=== PATIENT | female | born 1940 | race African-American/Black ===

== ENCOUNTER 2017-04-30 15:10 | Observation (INO) ==
[2017-04-30] MEDS ORDERED: NITROGLYCERIN 2% OINT 1 INCH/GM PACK TOP STA (16:03)
[2017-04-30] MEDS ORDERED: ASPIRIN 325 MG TABLET PO STA (16:03)
[2017-04-30 16:11] LABS: Basophils % 0.6 % (0.0-0.8); Eosinophils # 0.1 10*3/uL (0.0-0.87); Hematocrit 41.3 VOL% (35.7-47.0); Immature Granulocytes % 0.3 %; Immature Granulocytes Absolute 0.02 #; Lymphocytes # 1.1 10*3/uL (1.4-4.0); Lymphocytes % 15.1 % (21.3-54.2); Mean Corpuscular HGB Conc 33.9 GM/DL (32-36); Mean Corpuscular Hemoglobin 31 PG (27-34); Mean Corpuscular Volume 91.6 FL (87-102); Mean Platelet Volume 11.9 FL (9.6-12.0); Monocytes # 0.6 10*3/uL (0.11-0.8); Monocytes % 8.6 % (1.7-12.7); Neutrophils # 5.2 10*3/uL (1.4-7.4); Neutrophils % 74.4 % (38.7-73.9); Platelet Count 182 T/CUMM (130-400); Red Blood Count 4.51 MC/CUMM (3.8-5.5); Red Cell Distribution Width 12.6 % (9.3-17.3)
--- NOTE | 2017-04-30 16:14 | Emergency Department Note ---
Tino Rubin Brittany, am scribing for, and in the presence of, Crescencio Villeda MD 16:07. Ronal Rubin Thomas, MD, personally performed the services described in this documentation, ascribed by Deirdre Jiménez in my presence, and it is both accurate and complete 614 . Arrival - Arrival Chief Complaint: Chest Pain Stated Complaint: chest pain /sob ED Nursing Triage Note: pt to er 19 via ems coming from home with c/o having chest pain with sob. 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 denies any n/v. states pain between shoulder blades. no other radiating pain noted. Mode of Arrival: Stretcher Limitations: No Limitations Source: Patient, Family, RN Notes Reviewed Time Seen by Provider: 04/30/17 15:26 - History of Present Illness HPI Narrative: Patient is a 77 y/o black female presenting to the ED via EMS with c/o chest pain that onset 3 days ago. Patient rates pain a 5/10 on a numeric pain scale and reports that this pain radiates in between the shoulder blades, denies radiation of pain into the neck or jaw. Family reports that patient has had chest pains in the past secondary to NM, but patient reports that this pain is different. She has had some non-productive cough, clear nasal drainage, but denies having any associated diaphoresis, nausea, vomiting, diarrhea, urgency, frequency, or dysuria. Family at the bedside reports that patient did have some RLE swelling yesterday but attributes this to her having this extremity in more of a dependent position for most of the day. Son states that upon his arrival back to the residency he found patient in the bathroom standing, he called her name with which she didn't respond so he then went to the bathroom and tapped her on her shoulder when she jumped in excitement. He states that this is not like her. Daughter reports that patient does have a history of Dementia/ Alzheimer's and that this could've also been a result of patient getting startled by son. PMHx of HTN, NM, PVD, Dementia, IDDM, NIDDM, Dyslipidemia, Rheumatoid Arthritis, GERD, Anemia, Breast CA of the Right Breast. Onset (ago): day(s) (3) Consistency: constant Allergies/Adverse Reactions: Allergies Allergy/AdvReac Type Severity Reaction Status Date / Time Penicillins Allergy Intermediate RASH Verified 04/30/17 15:16 Home Medications: Home Medications Medication Instructions Recorded Confirmed Type Aspirin [Ecotrin] 81 mg PO DAILY 03/01/15 02/24/17 History Donepezil [Aricept] 5 mg PO BEDTIME 03/01/15 02/24/17 History Isosorbide Mononitrate [Imdur] 30 mg PO DAILY 03/01/15 02/24/17 History Magnesium Chloride [Mag Delay] 64 mg PO BID 03/01/15 02/24/17 History Memantine [Namenda] 10 mg PO BID 03/01/15 02/24/17 History Metoprolol Succinate 50 mg PO DAILY 03/01/15 02/24/17 History Pantoprazole Tab [Protonix Tab] 40 mg PO DAILY 03/01/15 02/24/17 History Sertraline [Zoloft] 100 mg PO DAILY 03/01/15 02/24/17 History amLODIPine [Norvasc] 5 mg PO DAILY 03/01/15 02/24/17 History Pravastatin [Pravachol] 40 mg PO BEDTIME 10/15/15 02/24/17 History Acetaminophen Tab [Tylenol Tab] 325 mg PO Q4H PRN #0 tablet 01/13/16 02/24/17 Rx Docusate Sodium Cap [Colace Cap] 100 mg PO BID capsule 01/13/16 02/24/17 Rx Atorvastatin [Lipitor] 10 mg PO BEDTIME 02/11/16 02/24/17 History Insulin Detemir [Levemir] 40 unit SUBCUT BEDTIME 02/11/16 02/24/17 History Insulin NPH Hum/Reg Insulin Hm 42 unit SUBCUT AC BREAKFAST 02/11/16 02/11/16 History [NovoLIN 70/30] Glimepiride [Amaryl] 2 mg PO DAILY W/BREAKFAST 02/24/17 02/24/17 History Lisinopril 20 mg PO DAILY 02/24/17 02/24/17 History metFORMIN [Glucophage] 500 mg PO BID W/MEALS 02/24/17 02/24/17 History Review of System - Review of System 12 point system: reviewed and no additional remarkable complaints except as stated - Review of System Constitutional: Absent: diaphoresis Head/Ears/Nose/Throat: Present: nasal drainage Respiratory: Present: cough (non-productive), respiratory distress Cardiovascular: Present: chest pain Gastrointestinal: Absent: nausea, vomiting, diarrhea Genitourinary female: Absent: dysuria, frequency, urgency Musculoskeletal: Present: back pain (between the shoulder blades). Absent: neck pain Skin: Absent: rash Medical,Surgical,& Family Hx - Medical History Cardio: History of: Hypertension, NM, PVD (history of stent in the right leg) Psychological: Comment Only: Depression (DEMENTIA) Neurology: History of: Dementia No history of: Seizures HEENT: History of: Ear Problem, Eye Problem (CATARACTS), Dental Problems (FULL) Endocrine: History of: Diabetes Mellitus (IDDM), Diabetes Mellitus (NIDDM), Dyslipidemia Rheumatology: History of;: Rheumatoid Arthritis Gastrointestinal: History of: GERD Musculoskeletal: History of: Back/Neck Problems (C/O neck pain some times) Hematology: History of: Anemia Reproductive: History of: Breast Cancer (right breast about 45yr ago) Other: History of: Cancer (R BREAST) - Surgical History Cardiac Surgeries: Sugical HX of: Femoral-Popliteal Bypass Graft Thoracic Surgeries: Patient denies;: Organ Transplant HEENT Surgeries: Surgical HX of: Eye Surgery (CATARACT) Abdominal Surgeries: Surgical HX of: Abdominal Surgery, Colonoscopy, EGD Reproductive Surgeries: Surgical HX of;: Breast Surgery (RIGHT BREAST CA NO IV AND BP RIGHT ARM), Dilation and Curettage, Hysterectomy Orthopedic Surgeries: Surgical HX of;: Orthopedic Surgery (hip fracture and repair) - Family History Family History: Reports;: Family Cancer (DAD), Family Diabetes (PARENTS), Family Hypertension (SON) Comment Only: Family Heart Disease (SISTER) - Social History Smoking Status: Never smoker Frequency of Alcohol Use: None Type of Drug Use: None Exam Vital Signs: Vital Signs Temperature 97.8 F 04/30/17 15:11 Pulse Rate 82 04/30/17 15:11 Respiratory Rate 18 04/30/17 15:58 Blood Pressure 155/59 04/30/17 15:11 O2 Sat by Pulse Oximetry 100 04/30/17 16:09 - General General appearance: alert, in no apparent distress - Head Head exam: Present: atraumatic, normocephalic - Eye Eye exam: Present: EOMI. Absent: conjunctival injection, periorbital swelling, periorbital tenderness - ENT ENT exam: Present: mucous membranes moist - Neck Neck exam: Present: trachea midline - Chest Chest inspection: Present: symmetric chest wall rise - Respiratory Respiratory exam: Present: normal lung sounds bilaterally. Absent: respiratory distress - Cardiovascular Cardiovascular exam: Present: regular rate, normal rhythm, normal heart sounds - Abdominal Exam Abdominal exam: Present: soft. Absent: distention, tenderness - Extremities Exam Extremities exam: Present: normal capillary refill. Absent: pedal edema, calf tenderness - Neurological Exam Neurological exam: Present: alert. Absent: oriented X3 (disoriented to time), motor sensory deficit - Psychiatric Psychiatric exam: Present: normal affect, normal mood - Skin Skin exam: Present: warm, dry, normal color. Absent: rash Course - Reevaluation(s) Reevaluation #1: much improved with Tx Time: 17:35 - Consultations Consultation #1: jeni Jefferson OBS Time: 17:29 Results - Labs CBC & BMP: 04/30/17 15:48 04/30/17 15:48 Lab Results: I have reviewed the patients labs Labs: Laboratory Tests 04/30/17 04/30/17 04/30/17 15:48 15:48 15:48 WBC 7.0 RBC 4.51 Hgb 14.0 Hct 41.3 Plt Count 182 Neut % (Auto) 74.4 H Lymph % (Auto) 15.1 L Lymph # (Auto) 1.1 L D-Dimer, Quantitative 2.1 Troponin I 0.029 Laboratory Tests 04/30/17 04/30/17 15:48 15:48 Sodium 141 Potassium 4.0 Chloride 104 Carbon Dioxide 33 H BUN 17 Creatinine 1.20 H Glucose 198 H Magnesium 1.7 L Alkaline Phosphatase 127 H B-Natriuretic Peptide 72 Globulin 4.4 H Albumin/Globulin Ratio 0.7 L Laboratory Tests 04/30/17 15:48 B-Natriuretic Peptide 72 - EKG EKG results: interpreted by ERMD, sinus rhythm, normal axis, normal QRS EKG shows: sinus rhythm - Impressions Sinus rhythm. ST-T flattening inferiorly, new from 02/2017. Normal axis. Normal intervals. Normal QRS. - Diagnostic Findings Procedure: Chest x-ray: report reviewed by me (Stable mild cardiomegaly. No acute cardiopulmonary process.) Disposition Clinical Impression: Chest pain, Acute dyspnea Case discussed with: patient, patient's family Disposition: Still a Patient Condition: Stable Time of Disposition: 17:30
[2017-04-30] MEDS ORDERED: NITROGLYCERIN 2% OINT 1 INCH/GM PACK TOP ONE (16:18)
[2017-04-30] MEDS ORDERED: ASPIRIN 325 MG TABLET ONE (16:18)
[2017-04-30 16:48] LABS: Alanine Aminotransferase 26 U/L (13-56); Albumin 3.5 G/DL (3.4-5.0); Alkaline Phosphatase 127 U/L (45-117); Aspartate Amino Transferase 14 U/L (0-37); Bilirubin,Total < 0.39 MG/DL (0.2-1.0); Blood Urea Nitrogen 17 MG/DL (7-18); Calcium 9.8 MG/DL (8.5-10.1); Glucose 198 MG/DL (74-106); Magnesium 1.7 MG/DL (1.8-2.4); Osmolality,Calculated 288.3 MOS/KG (273-304); Sodium 141 MMOL/L (136-145); Total Protein 7.9 G/DL (6.4-8.3)
--- NOTE | 2017-04-30 17:02 | EKG Report ---
Stationary ECG Study [facility] ER Test Date: 04/30/2017 3:51:37 PM Pat Name: DALI MOMIN Department: Room: Gender: F Security Tester: : 1940 Requested by: Crescencio Villeda Order Number: [id number] Reading MD: TYRA ALDRICH Intervals [place] Rate: 72 P: 66 AK: 149 QRS: 21 QRSD: 88 T: 105 QT: 374 QTc: 399 Interpretive Statements SINUS RHYTHM NONSPECIFIC T-WAVE ABNORMALITY ST elevation in V1 and v2 suggest early repolarization and/or LVH. WARNING: DATA QUALITY MAY AFFECT INTERPRETATION Electronically Signed On 04-30-17 19:45:57 CDT by TYRA ALDRICH [email or web address]
--- NOTE | 2017-04-30 17:03 | XRay Report ---
History: Chest pain Date: 04/30/2017 Study: Chest x-ray AP portable Comparison exam: February 25, 2017 There is stable cardiomegaly. The mediastinal contours are unchanged. There is mild to moderate aortic arch calcification. The pulmonary vasculature is not engorged. There is no pleural effusion. There is moderate thoracic spondylosis. Impression: Stable mild cardiomegaly. No acute cardiopulmonary process PROCEDURE INTERPRETED AT [facility] DEPARTMENT OF RADIOLOGY Final Report Signed by: Dr. Kayleigh Naik
[2017-04-30] MEDS ORDERED: DEXTROSE 50% 25 GM/50 ML SYRINGE IV PRN (17:50)
[2017-04-30] MEDS ORDERED: GLUCAGON 1 MG VIAL IM PRN (17:50)
[2017-04-30] MEDS ORDERED: ONDANSETRON 4 MG/2 ML VIAL IV PRN (17:50)
[2017-04-30] MEDS ORDERED: ACETAMINOPHEN 325 MG TABLET PO PRN (17:50)
[2017-04-30] MEDS: ENOXAPARIN 80 MG/0.8 ML SYRINGE SUBCUT SCH (18:56)
[2017-04-30] MEDS: DOCUSATE SODIUM 100 MG CAPSULE PO SCH (20:59)
[2017-05-01 05:24] LABS: Risk Ratio 2.6; VLDL CHOLESTEROL 22.6 MG/DL
[2017-05-01] MEDS: ENOXAPARIN 80 MG/0.8 ML SYRINGE SUBCUT SCH ×2 (06:00→17:41)
--- NOTE | 2017-05-01 08:27 | EKG Report ---
Stationary ECG Study [facility] Test Date: 05/01/2017 7:38:38 AM Pat Name: DALI MOMIN Department: Room: 273 Gender: F Technical Support Agent: : 1940 Requested by: Crescencio Villeda Order Number: [id number] Reading MD: DANA ZAMORANO Intervals [place] Rate: 68 P: 67 ME: 139 QRS: 22 QRSD: 91 T: 53 QT: 404 QTc: 422 Interpretive Statements SINUS RHYTHM NONSPECIFIC T-WAVE ABNORMALITY Electronically Signed On 05-01-17 15:35:23 CDT by DANA ZAMORANO [email or web address]
[2017-05-01] MEDS: PANTOPRAZOLE 40 MG TABLET PO SCH (09:03)
[2017-05-01] MEDS: DOCUSATE SODIUM 100 MG CAPSULE PO SCH ×2 (09:03→21:12)
--- NOTE | 2017-05-01 09:19 | Internal Med History&Physical ---
Assessment and Plan (1) Chest pain Status: Acute Assessment and plan: 77-year-old female admitted to acute care * Chest pain. Patient has history of coronary artery disease. Will consult cardiology to evaluate. Her troponin was in nathan zone. EKG has nonspecific changes. She has multiple risk factors. Will do another set of enzymes this morning. She has been started on aspirin and Lovenox * Insulin-dependent type 2 diabetes. Continue insulin. Will hold metformin. * Hypertension. Blood pressure is stable * Dementia. Continue current treatment * Chronic diabetic foot ulcer. Consult Dr. ng to follow * Discussed with patient and her son Current Visit: Yes (2) DM2 (diabetes mellitus, type 2) Problem details: Fair control. If the patient can be discharged to a rehabilitation facility, I recommend substituting basal and meal time insulin Rx rather than restarting her preadmission 70/30 insulin. Separate basal and prandial insulin dosing affords more specific titration. Status: Acute Current Visit: No (3) Dementia Status: Acute Current Visit: No (4) Diabetic ulcer of right foot Status: Acute Current Visit: No (5) Hypertension Status: Acute Current Visit: No History of Present Illness Chief complaint: Chest pain History of present illness: Ms. Lauren is a 77 year old female with history of multiple medical problems including insulin-dependent diabetes, hypertension, coronary artery disease status post stent placement at [facility] in the past, peripheral vascular disease, status post stent placement in her leg in the past, depression, hyperlipidemia, dementia and chronic diabetic ulcer of the right foot. She was at her home sitting when she started having chest pain associated with shortness of breath. The pain has been going on and on for the past day or so. She also had pain between her shoulder blades. She denies any nausea or vomiting. Patient is mainly limited to a wheelchair because of the chronic wound on the right lower extremity. She denies any history of smoking or alcohol use recently. She lives at home with her daughter Home Medications Medication Instructions Recorded Confirmed Type Aspirin [Ecotrin] 81 mg PO DAILY 03/01/15 04/30/17 History Donepezil [Aricept] 5 mg PO BEDTIME 03/01/15 04/30/17 History Isosorbide Mononitrate [Imdur] 30 mg PO DAILY 03/01/15 04/30/17 History Magnesium Chloride [Mag Delay] 64 mg PO BID 03/01/15 04/30/17 History Memantine [Namenda] 10 mg PO BID 03/01/15 04/30/17 History Metoprolol Succinate 50 mg PO DAILY 03/01/15 04/30/17 History Pantoprazole Tab [Protonix Tab] 40 mg PO DAILY 03/01/15 04/30/17 History Sertraline [Zoloft] 100 mg PO DAILY 03/01/15 04/30/17 History amLODIPine [Norvasc] 5 mg PO BEDTIME 03/01/15 04/30/17 History Pravastatin [Pravachol] 40 mg PO BEDTIME 10/15/15 04/30/17 History Acetaminophen Tab [Tylenol Tab] 325 mg PO Q4H PRN #0 tablet 01/13/16 04/30/17 Rx metFORMIN [Glucophage] 500 mg PO BID W/MEALS 02/24/17 04/30/17 History Calcium Citrate/Vitamin D3 2 each PO DAILY 04/30/17 04/30/17 History [Calcium Citrate - Vit D3 Tab] Insulin NPH Hum/Reg Insulin Hm 20 unit SUBCUT TID 04/30/17 04/30/17 History [NovoLIN 70/30] Losartan Potassium 50 mg PO DAILY 04/30/17 04/30/17 History [place]-3 Fatty Acids [Fish Oil] 300 mg PO DAILY 04/30/17 04/30/17 History Allergies Allergy/AdvReac Type Severity Reaction Status Date / Time Penicillins Allergy Intermediate RASH Verified 04/30/17 15:16 Medical,Surgical,& Family Hx - Medical History Cardio: History of: CAD (Stent placement at [facility]), Hypertension, NM, PVD (history of stent in the right leg), Cardiovascular Problems Psychological: Comment Only: Depression (DEMENTIA) Neurology: History of: Dementia No history of: Seizures HEENT: History of: Ear Problem, Eye Problem (CATARACTS), Dental Problems (FULL) Endocrine: History of: Diabetes Mellitus (IDDM), Dyslipidemia Respiratory: No history of: Respiratory Problems Gastrointestinal: History of: GERD Musculoskeletal: History of: Back/Neck Problems (C/O neck pain some times) No history of: Amputation Hematology: History of: Anemia Reproductive: History of: Breast Cancer (right breast about 45yr ago) Other: History of: Cancer (R BREAST) - Surgical History Cardiac Surgeries: Sugical HX of: Femoral-Popliteal Bypass Graft, Cardiac Catheterization Patient Denies: Cardiac Surgery Thoracic Surgeries: Patient denies;: Organ Transplant, Lobectomy Neurologic Surgeries: Patient denies: Neurologic Surgery HEENT Surgeries: Surgical HX of: Eye Surgery (CATARACT) Abdominal Surgeries: Surgical HX of: Abdominal Surgery, Colonoscopy, EGD Reproductive Surgeries: Surgical HX of;: Breast Surgery (RIGHT BREAST CA NO IV AND BP RIGHT ARM), Dilation and Curettage, Gynecologic Surgery, Hysterectomy Patient denies;: Genitourinary Surgery Orthopedic Surgeries: Surgical HX of;: Orthopedic Surgery (hip fracture and repair) - Family History Family History: Reports;: Family Cancer (DAD), Family Diabetes (PARENTS), Family Hypertension (SON) Comment Only: Family Heart Disease (SISTER) - Social History Smoking Status: Never smoker Frequency of Alcohol Use: None Type of Drug Use: None Marital Status: Single Lives With:: Children (Daughter) Functional capacity: wheelchair bound 12 point system: reviewed and no additional remarkable complaints except as stated (As mentioned in HPI) Exam - Constitutional Vitals: Period Temp Pulse Resp BP Sys/[place] Pulse Ox Last 24 Hr 96.7 F-98.2 F 71-86 16-20 138-167/56-79 94-100 Exam: Examination: GENERAL: NAD. 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 Mucous membranes are moist NECK: Neck is supple. No JVD. No carotid bruit. No thyromegaly. CVS: Regular rate and rhythm. S1 and S2 are normal. RESPIRATORY: Lungs are clear. No rales or rhonchi. ABDOMEN: Soft and nontender. Bowel sounds are present. No hepatosplenomegaly. EXT: No edema. Peripheral pulses are present. SCHOOL OFFICE MANAGER: Patient is awake, alert and oriented to time place and person. Cranial nerves II through XII are grossly intact. Motor strength is 3 to 4/5 SKIN: Warm and dry. Status post right mastectomy. Wound dressing on the right lower extremity MSK: No obvious deformity. Results - Labs CBC & BMP: 04/30/17 15:48 04/30/17 15:48 Lab Results: I have reviewed the past 24 hour labs Quality Measures - Stroke Symptom Onset Unknown: No
[2017-05-01] MEDS ORDERED: ACETAMINOPHEN 325 MG TABLET PO PRN (09:24)
[2017-05-01 10:17] LABS: Troponin I Only 0.028 NG/ML (0.00-0.045)
--- NOTE | 2017-05-01 13:50 | Ultrasound Report ---
Venous Doppler ultrasound bilateral lower extremities Indication: Dyspnea Comparison: None available Findings: No evidence of echogenic, noncompressible thrombus seen in the visualized veins of the extremities. Color Doppler venous waveform pattern is within normal limits. Impression: No evidence of deep venous thrombosis. Ultrasound images stored and captured. PROCEDURE INTERPRETED AT [facility] DEPARTMENT OF RADIOLOGY Final Report Signed by: Dr. Tj Owens
--- NOTE | 2017-05-01 16:06 | Cardiology Consult Note ---
Adam Rubin Lesley, COLLIN, am scribing for, and in the presence of, Krunal Mendez MD 15:59. Assessment and Plan - Time spent with patient Time spent with patient: Greater than 30 minutes (Record review, assessment, and documentation) (1) Dyspnea Status: Acute Assessment and plan: 77-year-old black female, followed by cardiology at [facility], presenting with chest pain, history of CAD, PAD, chronic right lower extremity ulceration, diabetes, moderate dementia. D-dimer 2.1, negative DVT study, borderline troponin, nonspecific repolarization changes on EKG. she is currently chest pain-free and hemodynamically stable. -Continue aspirin, beta-bri, statin. -Stress test in a.m. N.p.o. after midnight. -If cardiac ischemia ruled out, may consider PE workup. -Obtain records from [facility] Current Visit: Yes (2) Dementia Status: Resolved Assessment and plan: SEE PLAN LISTED BELOW Current Visit: No (3) Diabetic ulcer of right foot Status: Chronic Assessment and plan: SEE PLAN LISTED BELOW Current Visit: No (4) Diabetes Status: Chronic Assessment and plan: SEE PLAN LISTED BELOW Current Visit: No (5) Debility Status: Chronic Assessment and plan: SEE PLAN LISTED BELOW Current Visit: Yes (6) Chest pain Status: Acute Assessment and plan: SEE PLAN LISTED BELOW Current Visit: Yes History of Present Illness - Data of Consult Patient: new to practice Consult date: 05/01/17 - Consult Narrative Reason for consult: Chest pain, shortness of breath History of present illness: CONSTRUCTION ENGINEER: [facility], patient and son unable to tell me Ms. Lauren is a 77 year old BF, past medical history of insulin-dependent diabetes, hypertension, CAD, post PCI at [facility], PAD (with stent placement in the past), dyslipidemia, dementia, dysphasia, breast cancer and chronic diabetic ulcer in the right foot (general debility and wheelchair confinement). The patient has never smoked and does not use alcohol. Past surgical history includes hysterectomy, right mastectomy, and debridement of chronic right diabetic ulcer. The patient and her son were unable to tell me the name of the outside machinist she is seen in the past. Will request records from [facility]. Echocardiogram done 03/2015 revealed grade 1 diastolic dysfunction, EF 65%. Patient reports that she was lying in bed asleep and awakened with chest pain, shortness of breath, and heart palpitations. Patient denies nausea, vomiting, diaphoresis, bright red blood per rectum, and melena. The son is at bedside and reports that he found her sitting on the toilet, she seemed "out of it". 911 was called and the patient was brought to the emergency room by EMS. The patient was admitted to continuous telemetry unit, she denies complaints of further chest pain or shortness of breath. EKG shows sinus rhythm with ST-T- wave abnormality. Chest x-ray resulted stable cardiomegaly, no acute cardiopulmonary process. Labs reviewed, Troponin unremarkable other than slight 0.055 elevation. Creatinine 1.2 , Magnesium 1.7, lipid panel noted. The patient does complain of some midepigastric tenderness, she also complains of dysphasia that has worsened recently. She states that she did have an esophageal stretching in the past, she does not know which GI specialist she has seen. Will add Dopplers of lower extremity and consider CT of the chest to rule out pulmonary embolus. Will discuss with Dr. Mendez, further recommendations to follow. I CC: David Velasquez MD - Home Medications and Allergies Home Medications: Home Medications Medication Instructions Recorded Confirmed Type Aspirin [Ecotrin] 81 mg PO DAILY 03/01/15 04/30/17 History Donepezil [Aricept] 5 mg PO BEDTIME 03/01/15 04/30/17 History Isosorbide Mononitrate [Imdur] 30 mg PO DAILY 03/01/15 04/30/17 History Magnesium Chloride [Mag Delay] 64 mg PO BID 03/01/15 04/30/17 History Memantine [Namenda] 10 mg PO BID 03/01/15 04/30/17 History Metoprolol Succinate 50 mg PO DAILY 03/01/15 04/30/17 History Pantoprazole Tab [Protonix Tab] 40 mg PO DAILY 03/01/15 04/30/17 History Sertraline [Zoloft] 100 mg PO DAILY 03/01/15 04/30/17 History amLODIPine [Norvasc] 5 mg PO BEDTIME 03/01/15 04/30/17 History Pravastatin [Pravachol] 40 mg PO BEDTIME 10/15/15 04/30/17 History Acetaminophen Tab [Tylenol Tab] 325 mg PO Q4H PRN #0 tablet 01/13/16 04/30/17 Rx metFORMIN [Glucophage] 500 mg PO BID W/MEALS 02/24/17 04/30/17 History Calcium Citrate/Vitamin D3 2 each PO DAILY 04/30/17 04/30/17 History [Calcium Citrate - Vit D3 Tab] Insulin NPH Hum/Reg Insulin Hm 20 unit SUBCUT TID 04/30/17 04/30/17 History [NovoLIN 70/30] Losartan Potassium 50 mg PO DAILY 04/30/17 04/30/17 History Griswold-3 Fatty Acids [Fish Oil] 300 mg PO DAILY 04/30/17 04/30/17 History Allergies/Adverse Reactions: Allergies Allergy/AdvReac Type Severity Reaction Status Date / Time Penicillins Allergy Intermediate RASH Verified 04/30/17 15:16 - Constitutional Constitutional: Absent: chills, fatigue, fever(s), headache(s) - EENT Nose, mouth and throat: Present: dysphagia, sore throat - Cardiovascular Cardiovascular: Present: chest pain at rest, dyspnea, palpitations. Absent: chest pain with activity, diaphoresis, dyspnea on exertion, edema, radiating jaw , neck or arm pain, orthopnea - Respiratory Respiratory: Present: dyspnea. Absent: cough, dyspnea on exertion - Gastrointestinal Gastrointestinal: Present: dysphagia, hematemesis. Absent: abdominal pain, change in bowel habits, coffee ground emesis, melena, nausea, vomiting - Genitourinary Genitourinary: Present: urinary incontinence. Absent: difficulty urinating, dysuria - Neurological Neurological: Absent: abnormal speech, behavioral changes, confusion - Psychiatric Psychiatric: Absent: anxiety - Endocrine Endocrine: Absent: cold intolerance, fatigue - Hematologic/Lymphatic Hematologic/Lymphatic: Absent: easy bleeding Medical,Surgical,& Family Hx - Medical History Cardio: History of: CAD (Stent placement at [facility]), Hypertension, RI, PVD (history of stent in the right leg), Cardiovascular Problems Psychological: Comment Only: Depression (DEMENTIA) Neurology: History of: Dementia No history of: Seizures HEENT: History of: Ear Problem, Eye Problem (CATARACTS), Dental Problems (FULL) Endocrine: History of: Diabetes Mellitus (IDDM), Diabetes Mellitus (NIDDM), Dyslipidemia Rheumatology: History of;: Rheumatoid Arthritis Respiratory: No history of: Respiratory Problems Gastrointestinal: History of: GERD Musculoskeletal: History of: Back/Neck Problems (C/O neck pain some times) No history of: Amputation Hematology: History of: Anemia Reproductive: History of: Breast Cancer (right breast about 45yr ago) Other: History of: Cancer (R BREAST) - Surgical History Cardiac Surgeries: Sugical HX of: Femoral-Popliteal Bypass Graft, Cardiac Catheterization Patient Denies: Cardiac Surgery Thoracic Surgeries: Patient denies;: Organ Transplant, Lobectomy Neurologic Surgeries: Patient denies: Neurologic Surgery HEENT Surgeries: Surgical HX of: Eye Surgery (CATARACT) Abdominal Surgeries: Surgical HX of: Abdominal Surgery, Colonoscopy, EGD Reproductive Surgeries: Surgical HX of;: Breast Surgery (RIGHT BREAST CA NO IV AND BP RIGHT ARM), Dilation and Curettage, Gynecologic Surgery, Hysterectomy Patient denies;: Genitourinary Surgery Orthopedic Surgeries: Surgical HX of;: Orthopedic Surgery (hip fracture and repair) - Family History Family History: Reports;: Family Cancer (DAD), Family Diabetes (PARENTS), Family Hypertension (SON) Comment Only: Family Heart Disease (SISTER) - Social History Smoking Status: Never smoker Frequency of Alcohol Use: None Type of Drug Use: None Lives With:: Children Functional capacity: wheelchair bound Physical Examination Vital Signs Temp Pulse Resp BP Pulse Ox 97.8 F 82 18 155/59 97 04/30/17 15:11 04/30/17 15:11 04/30/17 15:11 04/30/17 15:11 04/30/17 15:11 Exam: General: No apparent distress. Pleasant and cooperative. Appears comfortable. HEENT: PERRL, normocephalic, atraumatic. Mucous membranes moist. No jaundice noted. Conjunctiva moist and clear, sclerae anicteric. Neck: No JVD/HJR, no thyromegaly or lymphadenopathy noted. No carotid bruit appreciated. Cardiac: Regular rate and rhythm. No murmur rub or gallop. PMI is nondisplaced. Lungs: Clear to auscultation without accessory muscle use to assist the respiratory pattern. No oxygen in use. Abdomen: Soft, bowel sounds normoactive. Nontender and nondistended. No abdominal bruit or thrill noted. No masses noted. Musculoskeletal: No fluid collection. Decreased range of motion is noted, dressing intact to right heel and foot. Extremities: No clubbing, cyanosis noted. No edema noted. Upper extremity pulses 2+. Lower extremity pulses 2+. Capillary refill less than 3 seconds. Skin: Warm and dry. No unusual lesions or rashes. Dressing intact to her right foot and heel. Neuro: Awake, alert and oriented to self and place. Moves all extremities well without hemiparesis or paralysis. No essential tremor is appreciated. Result/EKG - Labs CBC & BMP: 04/30/17 15:48 04/30/17 15:48 Lab Results: I have reviewed the past 24 hour labs Labs: Laboratory Results - last 24 hr 04/30/17 04/30/17 04/30/17 15:48 15:48 15:48 WBC RBC Hgb Hct MCV MCH MCHC RDW Plt Count MPV Neut % (Auto) Lymph % (Auto) Noble % (Auto) Eos % (Auto) Baso % (Auto) Neut # (Auto) Lymph # (Auto) Noble # (Auto) Eos # (Auto) Baso # (Auto) Immature Gran % Nucleated RBC % Immature Gran # Nucleated RBCs # Immature Plt Fraction D-Dimer, Quantitative 2.1 Sodium 141 Potassium 4.0 Chloride 104 Carbon Dioxide 33 H Anion Gap 8.0 BUN 17 Creatinine 1.20 H GFR Calculation 57 BUN/Creatinine Ratio 14.00 Glucose 198 H Calculated Osmolality 288.3 Calcium 9.8 Magnesium 1.7 L Total Bilirubin < 0.39 AST 14 ALT 26 Alkaline Phosphatase 127 H Total Creatine Kinase CK-MB (CK-2) Troponin I 0.029 B-Natriuretic Peptide Total Protein 7.9 Albumin 3.5 Globulin 4.4 H Albumin/Globulin Ratio 0.7 L Triglycerides Cholesterol LDL Cholesterol VLDL Cholesterol HDL Cholesterol Heart Disease Risk Ratio 04/30/17 04/30/17 04/30/17 15:48 15:48 18:52 WBC 7.0 RBC 4.51 Hgb 14.0 Hct 41.3 MCV 91.6 MCH 31 MCHC 33.9 RDW 12.6 Plt Count 182 MPV 11.9 Neut % (Auto) 74.4 H Lymph % (Auto) 15.1 L Noble % (Auto) 8.6 Eos % (Auto) 1.0 Baso % (Auto) 0.6 Neut # (Auto) 5.2 Lymph # (Auto) 1.1 L Noble # (Auto) 0.6 Eos # (Auto) 0.1 Baso # (Auto) 0.0 Immature Gran % 0.3 Nucleated RBC % 0.0 Immature Gran # 0.02 Nucleated RBCs # 0.00 Immature Plt Fraction 0.0 D-Dimer, Quantitative Sodium Potassium Chloride Carbon Dioxide Anion Gap BUN Creatinine GFR Calculation BUN/Creatinine Ratio Glucose Calculated Osmolality Calcium Magnesium Total Bilirubin AST ALT Alkaline Phosphatase Total Creatine Kinase CK-MB (CK-2) Troponin I 0.055 H D B-Natriuretic Peptide 72 Total Protein Albumin Globulin Albumin/Globulin Ratio Triglycerides Cholesterol LDL Cholesterol VLDL Cholesterol HDL Cholesterol Heart Disease Risk Ratio 05/01/17 05/01/17 04:16 09:14 WBC RBC Hgb Hct MCV MCH MCHC RDW Plt Count MPV Neut % (Auto) Lymph % (Auto) Noble % (Auto) Eos % (Auto) Baso % (Auto) Neut # (Auto) Lymph # (Auto) Noble # (Auto) Eos # (Auto) Baso # (Auto) Immature Gran % Nucleated RBC % Immature Gran # Nucleated RBCs # Immature Plt Fraction D-Dimer, Quantitative Sodium Potassium Chloride Carbon Dioxide Anion Gap BUN Creatinine GFR Calculation BUN/Creatinine Ratio Glucose Calculated Osmolality Calcium Magnesium Total Bilirubin AST ALT Alkaline Phosphatase Total Creatine Kinase 134 CK-MB (CK-2) 3.1 Troponin I 0.028 B-Natriuretic Peptide Total Protein Albumin Globulin Albumin/Globulin Ratio Triglycerides 113 Cholesterol 164 LDL Cholesterol 83.0 VLDL Cholesterol 22.6 HDL Cholesterol 63 H Heart Disease Risk Ratio 2.60 - Diagnostic Findings Procedure: Chest x-ray: report reviewed by me - EKG EKG results: interpreted by me, sinus rhythm Quality Measures - Stroke Symptom Onset Unknown: No I, Krunal Mendez MD, personally performed the services described in this documentation, ascribed by Negin Medina NP in my presence, and it is both accurate and complete 606 .
[2017-05-01] MEDS: INSULIN NPH/REGULAR 70/30 100 UNIT/ML SUBCUT SCH ×2 (17:06→21:12)
[2017-05-01] MEDS: metFORMIN 500 MG TABLET PO SCH (17:07)
[2017-05-01] MEDS: PRAVASTATIN 40 MG TABLET PO SCH (21:11)
[2017-05-01] MEDS: MAGNESIUM CHLORIDE 64 MG TABLET PO SCH (21:11)
[2017-05-01] MEDS: DONEPEZIL 5 MG TABLET PO SCH (21:12)
[2017-05-01] MEDS: MEMANTINE 10 MG TABLET PO SCH (21:12)
[2017-05-01] MEDS: amLODIPine 5 MG TABLET PO SCH (21:12)
[2017-05-01 22:28] LABS: Apearance,Urine Slightly Hazy (Clear); Bacteria,Urine Occasional /HPF (Few); Bilirubin,Urine Negative (Negative); Blood, Urine Small mg/dL (Negative); Glucose,Urine (UA) >=500 mg/dL (Negative); Ketones,Urine Negative (Negative); Mucus,Urine Occasional /LPF (Occasional); Nitrite,Urine Positive (Negative); Protein,Urine 30 MG/DL; RBC,Urine 2 /HPF (0-4); Urine Color Yellow (Yellow); Urine Specific Gravity 1.018 (1.001-1.035); Urine Urobilinogen < 2.0 EU/DL (0.2-1.0); WBC,Urine 117 /HPF (0-6)
[2017-05-02 04:40] LABS: Basophils % 0.6 % (0.0-0.8); Eosinophils # 0.1 10*3/uL (0.0-0.87); Eosinophils % 1.7 % (0.00-10.9); Hematocrit 39.4 VOL% (35.7-47.0); Hemoglobin 13.5 GM/DL (12.0-16.0); Immature Granulocytes % 0.6 %; Immature Granulocytes Absolute 0.04 #; Lymphocytes # 2.1 10*3/uL (1.4-4.0); Lymphocytes % 29.6 % (21.3-54.2); Mean Corpuscular HGB Conc 34.3 GM/DL (32-36); Mean Corpuscular Hemoglobin 31 PG (27-34); Mean Platelet Volume 12.2 FL (9.6-12.0); Monocytes # 0.7 10*3/uL (0.11-0.8); Monocytes % 9.5 % (1.7-12.7); Neutrophils # 4.2 10*3/uL (1.4-7.4); Platelet Count 174 T/CUMM (130-400); Red Blood Count 4.38 MC/CUMM (3.8-5.5); Red Cell Distribution Width 12.7 % (9.3-17.3); White Blood Count 7.2 T/CUMM (4-12)
[2017-05-02 05:08] LABS: Calcium 9.5 MG/DL (8.5-10.1); Potassium 3.7 MMOL/L (3.5-5.1)
[2017-05-02] MEDS: ENOXAPARIN 80 MG/0.8 ML SYRINGE SUBCUT SCH ×3 (06:45→22:29)
[2017-05-02] MEDS ORDERED: REGADENOSON 0.4 MG/5 ML SYRINGE IV ONE (08:29)
[2017-05-02] MEDS ORDERED: METOPROLOL SUCCINATE XL 50 MG TABLET PO SCH ×2 (09:00→21:00)
--- NOTE | 2017-05-02 09:18 | Event Note ---
Patient admitted with chest pain, shortness of breath, palpitations underwent Lexiscan Cardiolite due to right foot ulcer/gait instability. She had no significant EKG changes. She experienced no chest pain, heaviness, tightness, dizziness, lightheadedness, shortness of breath, or syncope. Patient had a nuclear medicine for final scan. Dr. Mendez to read, interpret, and advise.
--- NOTE | 2017-05-02 11:33 | Internal Med Progress Note ---
Assessment and Plan (1) Chest pain Status: Acute Assessment and plan: 77-year-old female admitted to acute care * Chest pain. Patient had nuclear stress test today. Results are pending * Insulin-dependent type 2 diabetes. Continue insulin. * Hypertension. Blood pressure is stable * Dementia. Continue current treatment * Chronic diabetic foot ulcer. Patient is followed by surgery * Discussed with patient Current Visit: Yes (2) DM2 (diabetes mellitus, type 2) Problem details: Fair control. If the patient can be discharged to a rehabilitation facility, I recommend substituting basal and meal time insulin Rx rather than restarting her preadmission 70/30 insulin. Separate basal and prandial insulin dosing affords more specific titration. Status: Resolved Current Visit: No (3) Dementia Status: Resolved Current Visit: No (4) Diabetic ulcer of right foot Status: Chronic Current Visit: No (5) Hypertension Status: Resolved Current Visit: No Internal Medicine - PN: Subj Interval history: She is feeling better this morning. No specific complaints. No chest pain or shortness of breath Exam (Progress Note) - Constitutional Vitals: Period Temp Pulse Resp BP Sys/[place] Pulse Ox Last 24 Hr 97.4 F-98.8 F 68-85 18-20 150-192/63-87 94-100 Exam: Examination: GENERAL: NAD. 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 NECK: Neck is supple. CVS: Regular rate and rhythm. RESPIRATORY: Lungs are clear. ABDOMEN: Soft and nontender. Extremities: Peripheral pulses are present. MEMBER SERVICES COORDINATOR: Patient is awake, alert and oriented to time place and person. Cranial nerves II through XII are grossly intact. Motor strength is 3 to 4/5 SKIN: Warm and dry. Status post right mastectomy. Wound dressing on the right lower extremity MSK: No obvious deformity. Results - Labs CBC & BMP: 05/02/17 04:06 05/02/17 04:06 Lab Results: I have reviewed the past 24 hour labs Quality Measures - Stroke Symptom Onset Unknown: No
[2017-05-02] MEDS: DOCUSATE SODIUM 100 MG CAPSULE PO SCH ×2 (12:17→22:04)
[2017-05-02] MEDS: ISOSORBIDE MONONITRATE 30 MG TABLET PO SCH (12:17)
[2017-05-02] MEDS: OMEGA 3 ACID ETHYL ESTERS 1 GM CAPSULE PO SCH (12:17)
[2017-05-02] MEDS: CALCIUM (CITRATE)/VITAMIN D 200 MG-125 UNIT TABLET PO SCH (12:17)
[2017-05-02] MEDS: MAGNESIUM CHLORIDE 64 MG TABLET PO SCH ×2 (12:19→22:04)
[2017-05-02] MEDS: PANTOPRAZOLE 40 MG TABLET PO SCH ×2 (12:19→12:20)
[2017-05-02] MEDS: MEMANTINE 10 MG TABLET PO SCH ×2 (12:19→22:04)
[2017-05-02] MEDS: ASPIRIN EC 81 MG TABLET PO SCH (12:19)
[2017-05-02] MEDS: metFORMIN 500 MG TABLET PO SCH ×2 (12:20→16:45)
[2017-05-02] MEDS: INSULIN NPH/REGULAR 70/30 100 UNIT/ML SUBCUT SCH ×3 (12:29→22:05)
[2017-05-02] MEDS: SERTRALINE 100 MG TABLET PO SCH (12:30)
[2017-05-02] MEDS: LOSARTAN 50 MG TABLET PO SCH (12:30)
[2017-05-02] MEDS ORDERED: cloNIDine 0.1 MG TABLET PO PRN (12:58)
[2017-05-02 16:35] LABS: Calcium 8.9 MG/DL (8.5-10.1); Magnesium 1.6 MG/DL (1.8-2.4); Osmolality,Calculated 289.3 MOS/KG (273-304); Potassium 3.9 MMOL/L (3.5-5.1)
--- NOTE | 2017-05-02 17:44 | Nuclear Medicine Report ---
PHARMACOLOGICAL STRESS TEST. This is interpreted and dictated by Dr. Krunal Mendez. INDICATION: Chest pain. PROCEDURE: At rest, 10 mCi of 99-Technetium labeled Sestamibi was injected and rest images were obtained. A 0.4 mg IV Lexiscan was then injected. Then, 30 mCi of 99-Technetium labeled Sestamibi was injected and post pharmacological stress images were obtained. FINDINGS: At rest, sinus rhythm, 81 beats per minute, [address] depression in leads II, III, and aVF, blood pressure 146/78 mmHg. Post Lexiscan injection, sinus bradycardia, occasional PACs, heart rate 102 beats per minute. Blood pressure 154/[address] depression remained persistent with no change. There was no chest pain. Rest and post pharmacological stress gated and perfusion images were reviewed. There are motion artifacts on both post stress and rest images. The end-diastolic volume is 70 cc, the end-systolic volume is 25 cc. The calculated left ventricular ejection fraction is 64%. Perfusion images show an area of mildly decreased activity in the anteroseptal/apical region at rest, which becomes moderately photopenic post stress, suggestive of small amount of myocardial ischemia. Given the amount of motion artifacts, this could also imply rest imaging artifacts. CONCLUSION: 1. ABNORMAL REST EKG, NO SIGNIFICANT CHANGES WITH PHARMACOLOGICAL STRESS. NO CHEST PAIN. 2. NORMAL LEFT VENTRICULAR SIZE/NORMAL SYSTOLIC FUNCTION. 3. PERFUSION FINDINGS ARE SUGGESTIVE OF A SMALL AREA OF MILD ISCHEMIA IN THE ANTERIOR APICAL/ANTEROSEPTAL REGION, ALTHOUGH, FINDINGS ARE LIMITED BY MOTION ARTIFACTS. THERE ARE NO CORRESPONDING WALL MOTION ABNORMALITIES. 4. THIS IS A LOW TO MODERATE RISK TEST. Procedure performed and interpreted at [facility] Department of Radiology. [facility]
--- NOTE | 2017-05-02 19:48 | Cardiology Progress Note ---
Adam Rubin Lesley, COLLIN, am scribing for, and in the presence of, Krunal Mendez MD 19:48. Assessment and Plan - Time spent with patient Time spent with patient: Greater than 30 minutes (1) Dyspnea Status: Acute Assessment and plan: SEE PLAN LISTED BELOW Current Visit: Yes (2) Diabetic ulcer of right foot Status: Chronic Assessment and plan: SEE PLAN LISTED BELOW Current Visit: No (3) Diabetes Status: Chronic Assessment and plan: SEE PLAN LISTED BELOW Current Visit: No (4) Debility Status: Chronic Assessment and plan: SEE PLAN LISTED BELOW Current Visit: Yes (5) Chest pain Status: Acute Assessment and plan: SEE PLAN LISTED BELOW Current Visit: Yes (6) UTI (urinary tract infection) Status: Acute Assessment and plan: SEE PLAN LISTED BELOW Current Visit: Yes Cardiology - PN: Subj Interval history: FOOD SAFETY MANAGER: Dr. Jag Corral Ms. Lauren is a 77 year old BF, past medical history of insulin-dependent diabetes, hypertension, CAD, post PCI at [facility], PAD (with stent placement in the past), dyslipidemia, dementia, dysphasia, breast cancer and chronic diabetic ulcer in the right foot (general debility and wheelchair confinement). The patient has never smoked and does not use alcohol. Past surgical history includes hysterectomy, right mastectomy, and debridement of chronic right diabetic ulcer. The patient and her son were unable to tell me the name of the jackhammer splitter operator she is seen in the past. Will request records from [facility]. Echocardiogram done 03/2015 revealed grade 1 diastolic dysfunction, EF 65%. Patient reports that she was lying in bed asleep and awakened with chest pain, shortness of breath, and heart palpitations. Patient denies nausea, vomiting, diaphoresis, bright red blood per rectum, and melena. The son is at bedside and reports that he found her sitting on the toilet, she seemed "out of it". 911 was called and the patient was brought to the emergency room by EMS. The patient was admitted to continuous telemetry unit, she denies complaints of further chest pain or shortness of breath. EKG shows sinus rhythm with ST-T- wave abnormality. Chest x-ray resulted stable cardiomegaly, no acute cardiopulmonary process. Labs reviewed, Troponin unremarkable other than slight 0.055 elevation. Creatinine 1.2 , Magnesium 1.7, lipid panel noted. The patient does complain of some midepigastric tenderness, she also complains of dysphasia that has worsened recently. She states that she did have an esophageal stretching in the past, she does not know which GI specialist she has seen. Will add Dopplers of lower extremity and consider CT of the chest to rule out pulmonary embolus. 2016: Patient underwent stress test this morning, results pending. Hypertension uncontrolled, heart rate in the 70s with sinus rhythm noted on fine arts model. Labs reviewed CBC unremarkable, creatinine 0.8, LDL 83. Urinalysis positive nitrates and leukocytes, preliminary culture positive for gram-negative rods. Plan to start an antibiotic for UTI, if stress test rules out cardiac ischemia, would consider PE workup. Can set up outpatient GI for complaints of esophageal stricture and dysphagia. Records reviewed from [facility], last cardiac echo done in 2009 revealed normal chamber size with hyper dynamic wall motion and systolic function, EF 65-70%. Mild MR, TR. ASSESSMENT/PLAN: 1. Uncontrolled HTN. Clonidine was added, increase metoprolol to 100 mg twice daily. 2. Stress test was a low risk. No ACS. Reviewed prior cath report had patent LAD stent few yrs ago. Continue aspirin 3. Continue Imdur. Decrease Lovenox to DVT prophylactic dose. 4. Severe PAD, chronic SFA occlusion, ulcers. She is quite debilitated from this, will need outpatient follow-up 5. Follow-up with her jackhammer splitter operator at [facility] Exam (Progress Note) - Constitutional Vitals: Period Temp Pulse Resp BP Sys/[place] Pulse Ox Last 24 Hr 97.3 F-98.8 F 68-85 18-20 150-219/63-88 96-100 Exam: General: [Laying in bed, no apparent distress.] [Pleasant and cooperative. ] [ Appears comfortable.] HEENT: [PERRL, normocephalic, atraumatic]. [Mucous membranes moist.] [No jaundice noted.] [Conjunctiva moist and clear, sclerae anicteric.] Neck: [No JVD/HJR, no thyromegaly or lymphadenopathy noted.] [ No carotid bruit appreciated.] Cardiac: [Regular rate and rhythm.] [No murmur rub or gallop.] [PMI is nondisplaced.] Lungs: [Clear to auscultation without accessory muscle use to assist the respiratory pattern.] [ No oxygen in use. Abdomen: [Soft, bowel sounds normoactive.] [Nontender and nondistended.] [No abdominal bruit or thrill noted.] [No masses noted.] Musculoskeletal: [No fluid collection.] Full range of motion is noted to all extremities.] Extremities: [No clubbing, cyanosis noted.] [ No edema noted.] [Upper extremity pulses 2+.] [Lower extremity pulses 2+.] Capillary refill less than 3 seconds. Skin: Warm and dry. No unusual lesions or rashes. No skin breakdown appreciated. Right foot and heel with dressing intact for diabetic ulcer. Neuro: Awake, alert and oriented 3. Moves all extremities well without hemiparesis or paralysis. No essential tremor is appreciated. Result/EKG - Labs CBC & BMP: 05/02/17 04:06 05/02/17 16:02 Lab Results: I have reviewed the past 24 hour labs Labs: Laboratory Results - last 24 hr 05/01/17 05/01/17 05/01/17 16:29 16:32 19:57 WBC RBC Hgb Hct MCV MCH MCHC RDW Plt Count MPV Neut % (Auto) Lymph % (Auto) [place] % (Auto) Eos % (Auto) Baso % (Auto) Neut # (Auto) Lymph # (Auto) [place] # (Auto) Eos # (Auto) Baso # (Auto) Immature Gran % Nucleated RBC % Immature Gran # Nucleated RBCs # Immature Plt Fraction Sodium Potassium Chloride Carbon Dioxide Anion Gap BUN Creatinine GFR Calculation BUN/Creatinine Ratio Glucose POC Glucose 411 H 374 H 332 H Calculated Osmolality Calcium Urine Color Urine Appearance Urine pH Ur Specific [place] Urine Protein Urine Glucose (UA) Urine Ketones Urine Blood Urine Nitrate Urine Bilirubin Urine Urobilinogen Urine Leukocytes Urine RBC Urine WBC Urine WBC Clumps Urine Bacteria Urine Mucus Ur Culture Indicated? 05/01/17 05/02/17 05/02/17 22:05 04:06 04:06 WBC 7.2 RBC 4.38 Hgb 13.5 Hct 39.4 MCV 90.0 MCH 31 MCHC 34.3 RDW 12.7 Plt Count 174 MPV 12.2 H Neut % (Auto) 58.0 Lymph % (Auto) 29.6 [place] % (Auto) 9.5 Eos % (Auto) 1.7 Baso % (Auto) 0.6 Neut # (Auto) 4.2 Lymph # (Auto) 2.1 [place] # (Auto) 0.7 Eos # (Auto) 0.1 Baso # (Auto) 0.0 Immature Gran % 0.6 Nucleated RBC % 0.0 Immature Gran # 0.04 Nucleated RBCs # 0.00 Immature Plt Fraction 0.0 Sodium 143 Potassium 3.7 Chloride 106 Carbon Dioxide 31 Anion Gap 9.7 BUN 16 Creatinine 0.80 GFR Calculation 96 BUN/Creatinine Ratio 20.00 Glucose 73 L POC Glucose Calculated Osmolality 284.0 Calcium 9.5 Urine Color Yellow Urine Appearance Slightly hazy Urine pH 5.0 Ur Specific [place] 1.018 Urine Protein 30 Urine Glucose (UA) >=500 Urine Ketones Negative Urine Blood Small Urine Nitrate Positive H Urine Bilirubin Negative Urine Urobilinogen < 2.0 H Urine Leukocytes Moderate H Urine RBC 2 Urine WBC 117 Urine WBC Clumps Occasional Urine Bacteria Occasional Urine Mucus Occasional Ur Culture Indicated? Results to follow 05/02/17 05/02/17 07:26 11:25 WBC RBC Hgb Hct MCV MCH MCHC RDW Plt Count MPV Neut % (Auto) Lymph % (Auto) [place] % (Auto) Eos % (Auto) Baso % (Auto) Neut # (Auto) Lymph # (Auto) [place] # (Auto) Eos # (Auto) Baso # (Auto) Immature Gran % Nucleated RBC % Immature Gran # Nucleated RBCs # Immature Plt Fraction Sodium Potassium Chloride Carbon Dioxide Anion Gap BUN Creatinine GFR Calculation BUN/Creatinine Ratio Glucose POC Glucose 108 H 207 H Calculated Osmolality Calcium Urine Color Urine Appearance Urine pH Ur Specific [place] Urine Protein Urine Glucose (UA) Urine Ketones Urine Blood Urine Nitrate Urine Bilirubin Urine Urobilinogen Urine Leukocytes Urine RBC Urine WBC Urine WBC Clumps Urine Bacteria Urine Mucus Ur Culture Indicated? - EKG EKG results: interpreted by me, sinus rhythm Quality Measures - Stroke Symptom Onset Unknown: No I, Krunal Mendez MD, personally performed the services described in this documentation, ascribed by Negin Medina NP in my presence, and it is both accurate and complete [id number] .
[2017-05-02] MEDS: NITROFURANTOIN MACRO/MONO 100 MG CAPSULE PO SCH (22:04)
[2017-05-02] MEDS: PRAVASTATIN 40 MG TABLET PO SCH (22:04)
[2017-05-02] MEDS: amLODIPine 5 MG TABLET PO SCH (22:04)
[2017-05-02] MEDS: METOPROLOL SUCCINATE XL 100 MG TABLET PO SCH (22:04)
[2017-05-02] MEDS: DONEPEZIL 5 MG TABLET PO SCH (22:05)
[2017-05-03 04:01] LABS: Basophils % 0.4 % (0.0-0.8); Eosinophils # 0.1 10*3/uL (0.0-0.87); Hematocrit 39.1 VOL% (35.7-47.0); Hemoglobin 13.3 GM/DL (12.0-16.0); Immature Granulocytes % 0.4 %; Immature Granulocytes Absolute 0.03 #; Lymphocytes # 2.1 10*3/uL (1.4-4.0); Lymphocytes % 30.4 % (21.3-54.2); Mean Corpuscular Hemoglobin 31 PG (27-34); Mean Platelet Volume 12.3 FL (9.6-12.0); Monocytes # 0.7 10*3/uL (0.11-0.8); Monocytes % 9.5 % (1.7-12.7); Neutrophils % 57.3 % (38.7-73.9); Platelet Count 184 T/CUMM (130-400); Red Blood Count 4.25 MC/CUMM (3.8-5.5); White Blood Count 6.9 T/CUMM (4-12)
--- NOTE | 2017-05-03 08:12 | EKG Report ---
Stationary ECG Study [facility] Test Date: 05/03/2017 8:11:09 AM Pat Name: DALI MOMIN Department: Room: 273 Gender: F Reed Or Wind Instrument Repairer: QUE : 1940 Requested by: Crescencio Villeda Order Number: [id number] Reading MD: DANA ZAMORANO Intervals [place] Rate: 63 P: 59 SC: 143 QRS: -5 QRSD: 92 T: 90 QT: 425 QTc: 433 Interpretive Statements SINUS RHYTHM NONSPECIFIC T-WAVE ABNORMALITY Electronically Signed On 05-03-17 21:13:37 CDT by DANA ZAMORANO [email or web address]
--- NOTE | 2017-05-03 08:50 | Discharge Summary ---
Hospital Course - Hospital Course Hospital Course: Patient is 77-year-old female with history of coronary artery disease, hypertension, diabetes, dementia who was admitted to acute care with chest pain. She was evaluated by cardiology and underwent pharmacological stress test. It was low risk scan according to cardiology. Patient has a chronic wound on the right lower extremity. She was seen by wound care who have continued her treatment. She will see Dr. Brasher as an outpatient. Her blood pressure has been high. Her metoprolol was increased by the cardiology. Her magnesium is being replaced. She is ready to be discharged home. I will see her back in office next week for TCM. Her blood sugars were under reasonable control. We may change her insulin as outpatient. Discussed in detail with patient and her son. Diagnosis - Discharge Diagnosis (1) Chest pain Status: Acute (2) DM2 (diabetes mellitus, type 2) Status: Resolved (3) Dementia Status: Resolved (4) Diabetic ulcer of right foot Status: Chronic (5) Hypertension Status: Resolved Discharge Plan - Discharge Data Disposition: Home Health Service Condition at Discharge: Stable Discharge Diet: advance to your usual diet, diabetic diet Activity: resume usual activities as tolerated - Discharge Medications New Magnesium Chloride [Slow Mag] 128 mg PO BID #60 tablet Metoprolol Succinate Xl [Toprol Xl] 100 mg PO BID #60 tablet Nitrofurantoin Macro/[place] [Macrobid] 100 mg PO BID #10 capsule Continue Isosorbide Mononitrate [Imdur] 30 mg PO DAILY Sertraline [Zoloft] 100 mg PO DAILY Pantoprazole Tab [Protonix Tab] 40 mg PO DAILY Donepezil [Aricept] 5 mg PO BEDTIME amLODIPine [Norvasc] 5 mg PO BEDTIME Aspirin [Ecotrin] 81 mg PO DAILY Memantine [Namenda] 10 mg PO BID Pravastatin [Pravachol] 40 mg PO BEDTIME Acetaminophen Tab [Tylenol Tab] 325 mg PO Q4H PRN #0 tablet PRN Reason: fever, headache/body aches metFORMIN [Glucophage] 500 mg PO BID W/MEALS Insulin NPH Hum/Reg Insulin Hm [NovoLIN 70/30] 20 unit SUBCUT TID Etlan-3 Fatty Acids [Fish Oil] 300 mg PO DAILY Losartan Potassium 50 mg PO DAILY Calcium Citrate/Vitamin D3 [Calcium Citrate - Vit D3 Tab] 2 each PO DAILY Discontinued Magnesium Chloride [Mag Delay] 64 mg PO BID Metoprolol Succinate 50 mg PO DAILY - Follow Up or Referral - Forms/Instructions Additional Discharge Instructions: Appointment next week with TCM. Call in her new medications on discharge Exam - Constitutional Vitals: Period Temp Pulse Resp BP Sys/[place] Pulse Ox Last 24 Hr 97.0 F-98.0 F 61-89 16-20 108-219/55-88 95-100 Exam: Examination: GENERAL: NAD. 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 NECK: Neck is supple. CVS: Regular rate and rhythm. RESPIRATORY: Lungs are clear. ABDOMEN: Soft and nontender. Extremities: Peripheral pulses are present. MAGISTRATE JUDGE: Patient is awake, alert and oriented to time place and person. Motor is 4/ 5 SKIN: Warm and dry. Status post right mastectomy. Wound dressing on the right lower extremity MSK: No obvious deformity. Discharge Results Procedures and tests throughout hospitalization: Pending Orders 05/01/17 Urine Culture Routine Labs on day of discharge: Labs from last 24 hours 05/03/17 05/03/17 05/02/17 07:22 02:52 19:20 WBC 6.9 RBC 4.25 Hgb 13.3 Hct 39.1 MCV 92.0 MCH 31 MCHC 34.0 RDW 13.0 Plt Count 184 MPV 12.3 H Neut % (Auto) 57.3 Lymph % (Auto) 30.4 [place] % (Auto) 9.5 Eos % (Auto) 2.0 Baso % (Auto) 0.4 Neut # (Auto) 4.0 Lymph # (Auto) 2.1 [place] # (Auto) 0.7 Eos # (Auto) 0.1 Baso # (Auto) 0.0 Immature Gran % 0.4 Nucleated RBC % 0.0 Immature Gran # 0.03 Nucleated RBCs # 0.00 Immature Plt Fraction 0.0 Sodium Potassium Chloride Carbon Dioxide Anion Gap BUN Creatinine GFR Calculation BUN/Creatinine Ratio Glucose POC Glucose 82 150 H Calculated Osmolality Calcium Magnesium 05/02/17 05/02/17 05/02/17 16:02 15:26 11:25 WBC RBC Hgb Hct MCV MCH MCHC RDW Plt Count MPV Neut % (Auto) Lymph % (Auto) [place] % (Auto) Eos % (Auto) Baso % (Auto) Neut # (Auto) Lymph # (Auto) [place] # (Auto) Eos # (Auto) Baso # (Auto) Immature Gran % Nucleated RBC % Immature Gran # Nucleated RBCs # Immature Plt Fraction Sodium 141 Potassium 3.9 Chloride 105 Carbon Dioxide 28 Anion Gap 11.9 BUN 14 Creatinine 0.90 GFR Calculation 83 BUN/Creatinine Ratio 15.00 Glucose 234 H POC Glucose 264 H 207 H Calculated Osmolality 289.3 Calcium 8.9 Magnesium 1.6 L Preliminary micro results at discharge 05/01/17 Unknown Urine Culture - Preliminary Urine,In and Out Cath Gram Negative Rods DS: Provider Date of admission: 04/30/17 17:46 Primary care physician: David Velasquez MD Attending physician on admission: David Velasquez MD Consults: 04/30/17 17:50 Consult to Case Mgmt/Social Srvs [CONS] Routine Reason for Case Mgmt/Social Srvs: Discharge Planning 04/30/17 17:53 Consult to Physician [CONS] Routine Comment: Consulting Provider: Renetta Parada Consult to Specialist Group: Cardiology Person Notified: Christ Date Notified: 05/01/17 Time Notified: 07:50 Discharging clinician: David Velasquez MD
[2017-05-03] MEDS: ASPIRIN EC 81 MG TABLET PO SCH (09:05)
[2017-05-03] MEDS: MAGNESIUM CHLORIDE 64 MG TABLET PO SCH ×2 (09:05→09:07)
[2017-05-03] MEDS: CALCIUM (CITRATE)/VITAMIN D 200 MG-125 UNIT TABLET PO SCH (09:05)
[2017-05-03] MEDS: LOSARTAN 50 MG TABLET PO SCH (09:05)
[2017-05-03] MEDS: PANTOPRAZOLE 40 MG TABLET PO SCH (09:06)
[2017-05-03] MEDS: INSULIN NPH/REGULAR 70/30 100 UNIT/ML SUBCUT SCH (09:06)
[2017-05-03] MEDS: ISOSORBIDE MONONITRATE 30 MG TABLET PO SCH (09:06)
[2017-05-03] MEDS: NITROFURANTOIN MACRO/MONO 100 MG CAPSULE PO SCH (09:06)
[2017-05-03] MEDS: DOCUSATE SODIUM 100 MG CAPSULE PO SCH (09:06)
[2017-05-03] MEDS: OMEGA 3 ACID ETHYL ESTERS 1 GM CAPSULE PO SCH (09:06)
[2017-05-03] MEDS: MEMANTINE 10 MG TABLET PO SCH (09:06)
[2017-05-03] MEDS: SERTRALINE 100 MG TABLET PO SCH (09:06)
[2017-05-03] MEDS: metFORMIN 500 MG TABLET PO SCH (09:06)
[2017-05-03] MEDS: METOPROLOL SUCCINATE XL 100 MG TABLET PO SCH (09:06)
[2017-05-03 11:54] VITALS: BP 146/65
--- NOTE | 2017-05-03 17:37 | Cardiology Progress Note ---
Adam Rubin Lesley, COLLIN, am scribing for, and in the presence of, Krunal Mendez MD 17:37. Assessment and Plan - Time spent with patient Time spent with patient: Less than 30 minutes (Assessment documentation) (1) Dyspnea Status: Resolved Assessment and plan: SEE PLAN LISTED BELOW (2) Diabetic ulcer of right foot Status: Chronic Assessment and plan: SEE PLAN LISTED BELOW (3) Diabetes Status: Chronic Assessment and plan: SEE PLAN LISTED BELOW (4) Debility Status: Chronic Assessment and plan: SEE PLAN LISTED BELOW (5) Chest pain Status: Resolved Assessment and plan: SEE PLAN LISTED BELOW (6) UTI (urinary tract infection) Status: Acute Assessment and plan: SEE PLAN LISTED BELOW Cardiology - PN: Subj Interval history: CROP PEST CONTROL SPECIALIST: Dr. Jag Corral Summary: Ms. Lauren is a 77 year old BF, past medical history of insulin-dependent diabetes, hypertension, CAD, post PCI at [facility], PAD (with stent placement in the past), dyslipidemia, dementia, dysphasia, breast cancer and chronic diabetic ulcer in the right foot (general debility and wheelchair confinement). Echocardiogram done 03/2015 revealed grade 1 diastolic dysfunction , EF 65%. The patient was admitted after a sudden onset of chest pain, heart palpitations and dyspnea while she was in bed asleep. Chest x-ray resulted stable cardiomegaly, no acute cardiopulmonary process. Labs reviewed, Troponin unremarkable other than slight 0.055 elevation. Creatinine 1.2 , Magnesium 1.7. Most recent cardiac echo done 2009 revealed normal chamber size with hyper dynamic wall motion and systolic function, EF 65-70%. Mild MR, TR. The patient underwent perfusion scan revealed a mild area of ischemia in the anterior apical /anteroseptal region, no corresponding wall motion abnormalities. Low to moderate risk test. The patient was found to have a UTI and started on antibiotics. Hypertensive medications adjusted due to uncontrolled hypertension , the patient to follow up with Dr. Coughlin in one month or sooner if needed. 2016: The patient did well overnight. Blood pressure has improved with medication adjustments, continuous telemetry monitoring shows sinus rhythm with heart rate in the 60s. Okay to discharge home today from cardiology standpoint. Recommend follow-up with Dr. Coughlin at [facility] clinic in 1 month with EKG and BMP with mag prior to appointment. This appointment will be made honoring the family's request, the son states she has not seen [facility] in several years. Recommend the patient follow-up outpatient with GI for complaints of dysphagia, a chronic problem. Will also need outpatient follow with Dr. Brasher for chronic diabetic ulcer to right foot. Discharge medications: Aspirin 81 mg p.o. daily Norvasc 5 mg p.o. daily Isosorbide mononitrate 30 mg p.o. daily Cozaar 50 mg p.o. daily Toprol XL 100 mg p.o. twice daily Pravastatin 40 mg p.o. nightly 1. Uncontrolled HTN. Clonidine was added, increase metoprolol to 100 mg twice daily. 2. Stress test was a low risk. No ACS. Reviewed prior cath report had patent LAD stent few yrs ago. Continue aspirin 3. Continue Imdur. 4. Severe PAD, chronic SFA occlusion, ulcers. She is quite debilitated from this, will need outpatient follow-up with Dr. Brasher. 5. Ok to discharge from a Cardiology standpoint, recommend follow up with Cardiology in 2 weeks. She requests to schedule with [facility], as she has not been to [facility] in several years per her son. Exam (Progress Note) - Constitutional Vitals: Period Temp Pulse Resp BP Sys/[place] Pulse Ox Last 24 Hr 97.0 F-98.0 F 61-89 16-20 108-219/55-88 95-100 Exam: General: [Laying in bed, no apparent distress.] [Pleasant and cooperative. ] [ Appears comfortable.] HEENT: [PERRL, normocephalic, atraumatic]. [Mucous membranes moist.] [No jaundice noted.] [Conjunctiva moist and clear, sclerae anicteric.] Neck: [No JVD/HJR, no thyromegaly or lymphadenopathy noted.] [ No carotid bruit appreciated.] Cardiac: [Regular rate and rhythm.] [No murmur rub or gallop.] [PMI is nondisplaced.] Lungs: [Clear to auscultation without accessory muscle use to assist the respiratory pattern.] [ No oxygen in use. Abdomen: [Soft, bowel sounds normoactive.] [Nontender and nondistended.] [No abdominal bruit or thrill noted.] [No masses noted.] Musculoskeletal: [No fluid collection.] Full range of motion is noted to all extremities.] Extremities: [No clubbing, cyanosis noted.] [ No edema noted.] [Upper extremity pulses 2+.] [Lower extremity pulses 2+.] Capillary refill less than 3 seconds. Skin: Warm and dry. No unusual lesions or rashes. No skin breakdown appreciated. Right foot and heel with dressing intact for diabetic ulcer. Neuro: Awake, alert and oriented 3. Moves all extremities well without hemiparesis or paralysis. No essential tremor is appreciated. Result/EKG - Labs CBC & BMP: 05/03/17 02:52 05/02/17 16:02 Lab Results: I have reviewed the past 24 hour labs Labs: Laboratory Results - last 24 hr 05/02/17 05/02/17 05/02/17 11:25 15:26 16:02 WBC RBC Hgb Hct MCV MCH MCHC RDW Plt Count MPV Neut % (Auto) Lymph % (Auto) [place] % (Auto) Eos % (Auto) Baso % (Auto) Neut # (Auto) Lymph # (Auto) [place] # (Auto) Eos # (Auto) Baso # (Auto) Immature Gran % Nucleated RBC % Immature Gran # Nucleated RBCs # Immature Plt Fraction Sodium 141 Potassium 3.9 Chloride 105 Carbon Dioxide 28 Anion Gap 11.9 BUN 14 Creatinine 0.90 GFR Calculation 83 BUN/Creatinine Ratio 15.00 Glucose 234 H POC Glucose 207 H 264 H Calculated Osmolality 289.3 Calcium 8.9 Magnesium 1.6 L 05/02/17 05/03/17 05/03/17 19:20 02:52 07:22 WBC 6.9 RBC 4.25 Hgb 13.3 Hct 39.1 MCV 92.0 MCH 31 MCHC 34.0 RDW 13.0 Plt Count 184 MPV 12.3 H Neut % (Auto) 57.3 Lymph % (Auto) 30.4 [place] % (Auto) 9.5 Eos % (Auto) 2.0 Baso % (Auto) 0.4 Neut # (Auto) 4.0 Lymph # (Auto) 2.1 [place] # (Auto) 0.7 Eos # (Auto) 0.1 Baso # (Auto) 0.0 Immature Gran % 0.4 Nucleated RBC % 0.0 Immature Gran # 0.03 Nucleated RBCs # 0.00 Immature Plt Fraction 0.0 Sodium Potassium Chloride Carbon Dioxide Anion Gap BUN Creatinine GFR Calculation BUN/Creatinine Ratio Glucose POC Glucose 150 H 82 Calculated Osmolality Calcium Magnesium - EKG EKG results: interpreted by me, sinus rhythm Quality Measures - Stroke Symptom Onset Unknown: No Specialty Discharge - Follow Up or Referrals Follow up with: West Coughlin MD [Physician] - 06/07/17 1:50 pm (EKG, BMP with mag prior to appt) David Velasquez MD [Primary Care Provider] - 06/01/17 2:00 pm Vanessa Rubin Attila, MD, personally performed the services described in this documentation, ascribed by Negin Medina NP in my presence, and it is both accurate and complete [id number] .
[2017-05-03] MEDS ORDERED: ENOXAPARIN 40 MG/0.4 ML SYRINGE SUBCUT SCH (21:00)
== END 2017-05-03 14:12 | disposition home health service (06) ==
LOC: EDUNIT# → EDBD → N.EDINP 15:10 → N.ED 15:10 → N.EDINP 18:28 → N.TELES 18:31
PROVIDERS: ADMIT Internal Medicine; ATTEND Internal Medicine

== ENCOUNTER 2017-07-10 13:32 | Inpatient (IN) ==
[2017-07-10 14:55] LABS: Basophils % 0.2 % (0.0-0.8); Hematocrit 41.3 VOL% (35.7-47.0); Hemoglobin 14.2 GM/DL (12.0-16.0); Immature Granulocytes % 0.9 %; Immature Granulocytes Absolute 0.11 #; Lymphocytes # 1.1 10*3/uL (1.4-4.0); Lymphocytes % 8.7 % (21.3-54.2); Mean Corpuscular HGB Conc 34.4 GM/DL (32-36); Mean Corpuscular Hemoglobin 31 PG (27-34); Mean Platelet Volume 12.5 FL (9.6-12.0); Monocytes # 1.2 10*3/uL (0.11-0.8); Monocytes % 9.7 % (1.7-12.7); Neutrophils % 80.5 % (38.7-73.9); Platelet Count 155 T/CUMM (130-400); Red Blood Count 4.54 MC/CUMM (3.8-5.5); Red Cell Distribution Width 12.5 % (9.3-17.3); White Blood Count 12.4 T/CUMM (4-12)
[2017-07-10 15:09] LABS: PT Patient Result 10.7 SECS
[2017-07-10 15:15] LABS: Acetaminophen 12.1 UG/ML (10-30); Salicylate < 2.8 MG/DL (2.8-20)
[2017-07-10 15:22] LABS: Alanine Aminotransferase 17 U/L (13-56); Alkaline Phosphatase 82 U/L (45-117); Aspartate Amino Transferase 12 U/L (0-37); Blood Urea Nitrogen 14 MG/DL (7-18); Calcium 9.7 MG/DL (8.5-10.1); Glucose 282 MG/DL (74-106); Magnesium 1.6 MG/DL (1.8-2.4); Osmolality,Calculated 283.8 MOS/KG (273-304); Potassium 3.6 MMOL/L (3.5-5.1); Sodium 137 MMOL/L (136-145); Thyroid Stimulating Hormone 0.372 uIU/ml (0.358-3.74); Troponin I Only < 0.015 NG/ML (0.00-0.045)
[2017-07-10 15:58] LABS: Sedimentation Rate-Westergren 30 MM/HR (0-30)
[2017-07-10] MEDS ORDERED: CLINDAMYCIN INJ 600 MG in PREMIX 1 EACH IV STA (16:34)
[2017-07-10 16:54] LABS: Apearance,Urine CLOUDY (Clear); Bacteria,Urine Moderate /HPF (Few); Bilirubin,Urine Negative (Negative); Blood, Urine Moderate mg/dL (Negative); Glucose,Urine (UA) >=500 mg/dL (Negative); Ketones,Urine 5 mg/dL (Negative); Mucus,Urine Many /LPF (Occasional); Nitrite,Urine Negative (Negative); Protein,Urine >=500 MG/DL; RBC,Urine 15 /HPF (0-4); Urine Color Amber (Yellow); Urine Specific Gravity 1.028 (1.001-1.035); Urine Urobilinogen < 2.0 EU/DL (0.2-1.0); WBC,Urine 49 /HPF (0-6)
[2017-07-10 17:07] LABS: Barbiturates Screen,Urine Negative (Negative); Benzodiazepines Screen,Urine Negative (Negative); Cannabinoid Screen,Urine Negative (Negative); Opiate Screen,Urine Negative (Negative); Phencyclidine Screen,Urine Negative (Negative)
[2017-07-10] MEDS ORDERED: CLINDAMYCIN INJ 50 ML IV ONE (17:20)
[2017-07-10] MEDS ORDERED: LEVOFLOXACIN INJ 500 MG in PREMIX 1 EACH IV STA (17:34)
[2017-07-10] MEDS ORDERED: GLUCAGON 1 MG VIAL IM PRN (17:35)
[2017-07-10] MEDS ORDERED: ACETAMINOPHEN 325 MG TABLET PO PRN (17:35)
[2017-07-10] MEDS ORDERED: DEXTROSE 50% 25 GM/50 ML VIAL IV PRN (17:35)
[2017-07-10] MEDS ORDERED: ONDANSETRON 4 MG/2 ML VIAL IV PRN (17:35)
[2017-07-10] MEDS ORDERED: LEVOFLOXACIN INJ 100 ML IV ONE (17:54)
[2017-07-10 19:02] LABS: Ammonia < 10 UMOL/L (11-32)
[2017-07-10] MEDS: DOCUSATE SODIUM 100 MG CAPSULE PO SCH (20:50)
[2017-07-10] MEDS: SODIUM CHLORIDE 0.9% 1,000 ML IV SCH (21:00)
[2017-07-10] MEDS: INSULIN LISPRO 100 UNIT/ML SUBCUT SCH (22:05)
[2017-07-11] MEDS: SODIUM CHLORIDE 0.9% 1,000 ML IV SCH ×3 (05:04→18:45)
[2017-07-11] MEDS: PANTOPRAZOLE 40 MG TABLET PO SCH (08:19)
[2017-07-11] MEDS: INSULIN LISPRO 100 UNIT/ML SUBCUT SCH ×4 (08:19→21:27)
[2017-07-11] MEDS: DOCUSATE SODIUM 100 MG CAPSULE PO SCH ×2 (08:19→21:28)
[2017-07-11] MEDS: LOSARTAN 50 MG TABLET PO SCH (10:31)
[2017-07-11] MEDS: FLUCONAZOLE 100 MG TABLET PO SCH (10:32)
[2017-07-11] MEDS: MAGNESIUM CHLORIDE 64 MG TABLET PO SCH ×2 (10:32→21:28)
[2017-07-11] MEDS: METOPROLOL SUCCINATE XL 50 MG TABLET PO SCH ×2 (10:32→21:28)
[2017-07-11] MEDS: CALCIUM (CITRATE)/VITAMIN D 200 MG-125 UNIT TABLET PO SCH (10:32)
[2017-07-11] MEDS: MEMANTINE 10 MG TABLET PO SCH ×2 (10:33→21:28)
[2017-07-11] MEDS: ASPIRIN EC 81 MG TABLET PO SCH (10:33)
[2017-07-11] MEDS: NYSTATIN 500,000 UNIT/5 ML UDCUP SWISH/SWAL SCH ×4 (10:33→21:28)
[2017-07-11] MEDS: ENOXAPARIN 40 MG/0.4 ML SYRINGE SUBCUT SCH (10:33)
[2017-07-11] MEDS: ISOSORBIDE MONONITRATE 30 MG TABLET PO SCH (10:33)
[2017-07-11] MEDS: Omega-3 Fatty Acids [Fish Oil] 300 MG PO SCH (10:44)
[2017-07-11] MEDS ORDERED: CHLORHEXIDINE 4% SOLN 118 ML BOTTLE TOP ONE (12:11)
[2017-07-11] MEDS ORDERED: SKIN HEALING OINT (AQUAPHOR) 50 GM TUBE TOP PRN (12:11)
[2017-07-11] MEDS: INSULIN ASPART PROTAMINE/ASPART 70/30 100 UNIT/ML SUBCUT SCH ×2 (12:36→18:06)
[2017-07-11] MEDS: metFORMIN 500 MG TABLET PO SCH (18:06)
[2017-07-11] MEDS: SERTRALINE 100 MG TABLET PO SCH (18:06)
[2017-07-11] MEDS: DONEPEZIL 5 MG TABLET PO SCH (21:28)
[2017-07-11] MEDS: PRAVASTATIN 40 MG TABLET PO SCH (21:28)
[2017-07-11] MEDS: amLODIPine 5 MG TABLET PO SCH (21:28)
[2017-07-12] MEDS: SODIUM CHLORIDE 0.9% 1,000 ML IV SCH ×3 (03:07→18:14)
[2017-07-12 07:05] LABS: Basophils % 0.3 % (0.0-0.8); Eosinophils # 0.1 10*3/uL (0.0-0.87); Eosinophils % 0.9 % (0.00-10.9); Hematocrit 34.9 VOL% (35.7-47.0); Hemoglobin 11.7 GM/DL (12.0-16.0); Immature Granulocytes % 0.5 %; Immature Granulocytes Absolute 0.05 #; Lymphocytes # 1.2 10*3/uL (1.4-4.0); Lymphocytes % 11.4 % (21.3-54.2); Mean Corpuscular HGB Conc 33.5 GM/DL (32-36); Mean Corpuscular Hemoglobin 31 PG (27-34); Mean Corpuscular Volume 92.3 FL (87-102); Mean Platelet Volume 12.4 FL (9.6-12.0); Monocytes # 1.2 10*3/uL (0.11-0.8); Monocytes % 11.7 % (1.7-12.7); Neutrophils # 7.9 10*3/uL (1.4-7.4); Neutrophils % 75.2 % (38.7-73.9); Platelet Count 141 T/CUMM (130-400); Red Blood Count 3.78 MC/CUMM (3.8-5.5); Red Cell Distribution Width 12.5 % (9.3-17.3); White Blood Count 10.5 T/CUMM (4-12)
[2017-07-12 07:28] LABS: Band Neutrophils 4 % (0-10); Eosinophils 2 % (0-10); Lymphocytes 16 % (20-55); Segmented Neutrophils 72 % (50-85); Total Cells Counted 100
[2017-07-12 07:29] LABS: Macrocytosis Slight; Platelet Estimate Normal
[2017-07-12 07:37] LABS: Calcium 8.3 MG/DL (8.5-10.1); Osmolality,Calculated 282.3 MOS/KG (273-304)
[2017-07-12] MEDS: NYSTATIN 500,000 UNIT/5 ML UDCUP SWISH/SWAL SCH ×4 (09:30→21:20)
[2017-07-12] MEDS: DOCUSATE SODIUM 100 MG CAPSULE PO SCH ×2 (09:31→21:19)
[2017-07-12] MEDS: MAGNESIUM CHLORIDE 64 MG TABLET PO SCH ×2 (09:31→21:18)
[2017-07-12] MEDS: METOPROLOL SUCCINATE XL 50 MG TABLET PO SCH ×2 (09:31→21:19)
[2017-07-12] MEDS: CALCIUM (CITRATE)/VITAMIN D 200 MG-125 UNIT TABLET PO SCH (09:31)
[2017-07-12] MEDS: ISOSORBIDE MONONITRATE 30 MG TABLET PO SCH (09:31)
[2017-07-12] MEDS: metFORMIN 500 MG TABLET PO SCH ×2 (09:31→18:08)
[2017-07-12] MEDS: FLUCONAZOLE 100 MG TABLET PO SCH (09:31)
[2017-07-12] MEDS: LOSARTAN 50 MG TABLET PO SCH (09:32)
[2017-07-12] MEDS: MEMANTINE 10 MG TABLET PO SCH ×2 (09:32→21:19)
[2017-07-12] MEDS: PANTOPRAZOLE 40 MG TABLET PO SCH (09:32)
[2017-07-12] MEDS: BACITRACIN OINT 0.9 GM PACK TOP SCH (09:32)
[2017-07-12] MEDS: ENOXAPARIN 40 MG/0.4 ML SYRINGE SUBCUT SCH (09:32)
[2017-07-12] MEDS: INSULIN ASPART PROTAMINE/ASPART 70/30 100 UNIT/ML SUBCUT SCH ×3 (09:32→18:09)
[2017-07-12] MEDS: ASPIRIN EC 81 MG TABLET PO SCH (09:32)
[2017-07-12] MEDS: INSULIN LISPRO 100 UNIT/ML SUBCUT SCH ×4 (09:33→21:21)
[2017-07-12] MEDS: Omega-3 Fatty Acids [Fish Oil] 300 MG PO SCH (09:38)
[2017-07-12] MEDS: LEVOFLOXACIN 500 MG TABLET PO SCH (10:40)
[2017-07-12] MEDS: CLINDAMYCIN INJ 300 MG in PREMIX 1 EACH IV SCH ×2 (10:41→18:09)
[2017-07-12] MEDS: SERTRALINE 100 MG TABLET PO SCH (18:08)
[2017-07-12] MEDS: PRAVASTATIN 40 MG TABLET PO SCH (21:19)
[2017-07-12] MEDS: amLODIPine 5 MG TABLET PO SCH (21:19)
[2017-07-12] MEDS: DONEPEZIL 5 MG TABLET PO SCH (21:19)
[2017-07-13] MEDS: CLINDAMYCIN INJ 300 MG in PREMIX 1 EACH IV SCH ×3 (02:36→18:01)
[2017-07-13] MEDS: SODIUM CHLORIDE 0.9% 1,000 ML IV SCH ×3 (02:38→18:02)
[2017-07-13] MEDS: INSULIN ASPART PROTAMINE/ASPART 70/30 100 UNIT/ML SUBCUT SCH ×3 (09:25→18:01)
[2017-07-13] MEDS: INSULIN LISPRO 100 UNIT/ML SUBCUT SCH ×4 (09:26→22:35)
[2017-07-13] MEDS: ENOXAPARIN 40 MG/0.4 ML SYRINGE SUBCUT SCH (09:26)
[2017-07-13] MEDS: metFORMIN 500 MG TABLET PO SCH ×2 (09:29→18:01)
[2017-07-13] MEDS: FLUCONAZOLE 100 MG TABLET PO SCH (09:29)
[2017-07-13] MEDS: CALCIUM (CITRATE)/VITAMIN D 200 MG-125 UNIT TABLET PO SCH (09:29)
[2017-07-13] MEDS: ISOSORBIDE MONONITRATE 30 MG TABLET PO SCH (09:29)
[2017-07-13] MEDS: LOSARTAN 50 MG TABLET PO SCH (09:29)
[2017-07-13] MEDS: METOPROLOL SUCCINATE XL 50 MG TABLET PO SCH ×2 (09:29→22:34)
[2017-07-13] MEDS: NYSTATIN 500,000 UNIT/5 ML UDCUP SWISH/SWAL SCH ×4 (09:30→22:33)
[2017-07-13] MEDS: MEMANTINE 10 MG TABLET PO SCH ×2 (09:30→22:34)
[2017-07-13] MEDS: MAGNESIUM CHLORIDE 64 MG TABLET PO SCH ×2 (09:30→22:33)
[2017-07-13] MEDS: PANTOPRAZOLE 40 MG TABLET PO SCH (09:30)
[2017-07-13] MEDS: DOCUSATE SODIUM 100 MG CAPSULE PO SCH ×2 (09:30→22:33)
[2017-07-13] MEDS: ASPIRIN EC 81 MG TABLET PO SCH (09:30)
[2017-07-13] MEDS: LEVOFLOXACIN 500 MG TABLET PO SCH (11:08)
[2017-07-13] MEDS: Omega-3 Fatty Acids [Fish Oil] 300 MG PO SCH (11:09)
[2017-07-13] MEDS: BACITRACIN OINT 0.9 GM PACK TOP SCH (11:09)
[2017-07-13] MEDS: SERTRALINE 100 MG TABLET PO SCH (18:04)
[2017-07-13] MEDS: amLODIPine 5 MG TABLET PO SCH (22:34)
[2017-07-13] MEDS: DONEPEZIL 5 MG TABLET PO SCH (22:34)
[2017-07-13] MEDS: PRAVASTATIN 40 MG TABLET PO SCH (22:34)
[2017-07-14] MEDS ORDERED: LEVALBUTEROL 1.25 MG/3 ML NEB RESP TX ONE (01:12)
[2017-07-14] MEDS: CLINDAMYCIN INJ 300 MG in PREMIX 1 EACH IV SCH ×3 (01:32→18:05)
[2017-07-14] MEDS: SODIUM CHLORIDE 0.9% 1,000 ML IV SCH ×2 (01:52→11:17)
[2017-07-14] MEDS: INSULIN LISPRO 100 UNIT/ML SUBCUT SCH ×4 (09:21→20:48)
[2017-07-14] MEDS: METOPROLOL SUCCINATE XL 50 MG TABLET PO SCH ×2 (09:37→20:53)
[2017-07-14] MEDS: LOSARTAN 50 MG TABLET PO SCH (09:37)
[2017-07-14] MEDS: metFORMIN 500 MG TABLET PO SCH ×2 (09:37→17:04)
[2017-07-14] MEDS: NYSTATIN 500,000 UNIT/5 ML UDCUP SWISH/SWAL SCH ×4 (09:37→20:53)
[2017-07-14] MEDS: PANTOPRAZOLE 40 MG TABLET PO SCH (09:37)
[2017-07-14] MEDS: MAGNESIUM CHLORIDE 64 MG TABLET PO SCH ×2 (09:37→20:53)
[2017-07-14] MEDS: CALCIUM (CITRATE)/VITAMIN D 200 MG-125 UNIT TABLET PO SCH (09:37)
[2017-07-14] MEDS: ASPIRIN EC 81 MG TABLET PO SCH (09:37)
[2017-07-14] MEDS: Omega-3 Fatty Acids [Fish Oil] 300 MG PO SCH (09:38)
[2017-07-14] MEDS: DOCUSATE SODIUM 100 MG CAPSULE PO SCH ×2 (09:38→20:53)
[2017-07-14] MEDS: INSULIN ASPART PROTAMINE/ASPART 70/30 100 UNIT/ML SUBCUT SCH ×3 (09:38→16:24)
[2017-07-14] MEDS: ISOSORBIDE MONONITRATE 30 MG TABLET PO SCH (09:38)
[2017-07-14] MEDS: BACITRACIN OINT 0.9 GM PACK TOP SCH (09:38)
[2017-07-14] MEDS: ENOXAPARIN 40 MG/0.4 ML SYRINGE SUBCUT SCH (09:38)
[2017-07-14] MEDS: MEMANTINE 10 MG TABLET PO SCH ×2 (09:38→20:53)
[2017-07-14] MEDS: FLUCONAZOLE 100 MG TABLET PO SCH (09:38)
[2017-07-14] MEDS: LEVOFLOXACIN 500 MG TABLET PO SCH (12:13)
[2017-07-14] MEDS: SERTRALINE 100 MG TABLET PO SCH (18:06)
[2017-07-14] MEDS: DONEPEZIL 5 MG TABLET PO SCH (20:53)
[2017-07-14] MEDS: amLODIPine 5 MG TABLET PO SCH (20:53)
[2017-07-14] MEDS: PRAVASTATIN 40 MG TABLET PO SCH (20:53)
[2017-07-15] MEDS: CLINDAMYCIN INJ 300 MG in PREMIX 1 EACH IV SCH ×3 (01:13→18:08)
[2017-07-15] MEDS: CALCIUM (CITRATE)/VITAMIN D 200 MG-125 UNIT TABLET PO SCH (09:27)
[2017-07-15] MEDS: BACITRACIN OINT 0.9 GM PACK TOP SCH (09:28)
[2017-07-15] MEDS: DOCUSATE SODIUM 100 MG CAPSULE PO SCH ×2 (09:28→20:22)
[2017-07-15] MEDS: MAGNESIUM CHLORIDE 64 MG TABLET PO SCH ×2 (09:28→20:22)
[2017-07-15] MEDS: NYSTATIN 500,000 UNIT/5 ML UDCUP SWISH/SWAL SCH ×4 (09:28→20:22)
[2017-07-15] MEDS: METOPROLOL SUCCINATE XL 50 MG TABLET PO SCH ×2 (09:28→20:22)
[2017-07-15] MEDS: metFORMIN 500 MG TABLET PO SCH ×2 (09:28→16:37)
[2017-07-15] MEDS: LOSARTAN 50 MG TABLET PO SCH (09:28)
[2017-07-15] MEDS: FLUCONAZOLE 100 MG TABLET PO SCH (09:28)
[2017-07-15] MEDS: MEMANTINE 10 MG TABLET PO SCH ×2 (09:28→20:22)
[2017-07-15] MEDS: INSULIN ASPART PROTAMINE/ASPART 70/30 100 UNIT/ML SUBCUT SCH ×3 (09:29→16:37)
[2017-07-15] MEDS: INSULIN LISPRO 100 UNIT/ML SUBCUT SCH ×4 (09:29→21:10)
[2017-07-15] MEDS: ISOSORBIDE MONONITRATE 30 MG TABLET PO SCH (09:29)
[2017-07-15] MEDS: ENOXAPARIN 40 MG/0.4 ML SYRINGE SUBCUT SCH (09:29)
[2017-07-15] MEDS: ASPIRIN EC 81 MG TABLET PO SCH (09:29)
[2017-07-15] MEDS: PANTOPRAZOLE 40 MG TABLET PO SCH (09:29)
[2017-07-15] MEDS: Omega-3 Fatty Acids [Fish Oil] 300 MG PO SCH (09:30)
[2017-07-15] MEDS: LEVOFLOXACIN 500 MG TABLET PO SCH (11:07)
[2017-07-15] MEDS: SERTRALINE 100 MG TABLET PO SCH (18:07)
[2017-07-15] MEDS: DONEPEZIL 5 MG TABLET PO SCH (20:22)
[2017-07-15] MEDS: PRAVASTATIN 40 MG TABLET PO SCH (20:22)
[2017-07-15] MEDS: amLODIPine 5 MG TABLET PO SCH (20:22)
[2017-07-16] MEDS: CLINDAMYCIN INJ 300 MG in PREMIX 1 EACH IV SCH ×2 (01:46→10:24)
[2017-07-16 03:20] LABS: Basophils # 0.1 10*3/uL (0.0-0.2); Basophils % 0.7 % (0.0-0.8); Eosinophils # 0.1 10*3/uL (0.0-0.87); Eosinophils % 1.7 % (0.00-10.9); Hematocrit 33.3 VOL% (35.7-47.0); Immature Granulocytes % 2.3 %; Immature Granulocytes Absolute 0.17 #; Lymphocytes % 26.4 % (21.3-54.2); Mean Corpuscular Hemoglobin 31 PG (27-34); Mean Platelet Volume 11.9 FL (9.6-12.0); Monocytes # 0.9 10*3/uL (0.11-0.8); Monocytes % 11.8 % (1.7-12.7); Neutrophils # 4.3 10*3/uL (1.4-7.4); Neutrophils % 57.1 % (38.7-73.9); Platelet Count 240 T/CUMM (130-400); Red Blood Count 3.58 MC/CUMM (3.8-5.5); Red Cell Distribution Width 12.8 % (9.3-17.3); White Blood Count 7.6 T/CUMM (4-12)
[2017-07-16 03:47] LABS: Osmolality,Calculated 281.3 MOS/KG (273-304); Potassium 4.5 MMOL/L (3.5-5.1)
[2017-07-16 04:13] LABS: Atypical Lymphocytes Few; Band Neutrophils 2 % (0-10); Lymphocytes 34 % (20-55); Platelet Estimate Normal; Promyelocytes 1 %; Segmented Neutrophils 53 % (50-85); Smudge Cells Few; Total Cells Counted 100
[2017-07-16] MEDS: INSULIN LISPRO 100 UNIT/ML SUBCUT SCH ×2 (07:43→12:17)
[2017-07-16] MEDS: MAGNESIUM CHLORIDE 64 MG TABLET PO SCH (08:43)
[2017-07-16] MEDS: NYSTATIN 500,000 UNIT/5 ML UDCUP SWISH/SWAL SCH (08:43)
[2017-07-16] MEDS: LOSARTAN 50 MG TABLET PO SCH (08:43)
[2017-07-16] MEDS: METOPROLOL SUCCINATE XL 50 MG TABLET PO SCH (08:44)
[2017-07-16] MEDS: PANTOPRAZOLE 40 MG TABLET PO SCH (08:44)
[2017-07-16] MEDS: FLUCONAZOLE 100 MG TABLET PO SCH (08:44)
[2017-07-16] MEDS: Omega-3 Fatty Acids [Fish Oil] 300 MG PO SCH (08:44)
[2017-07-16] MEDS: ISOSORBIDE MONONITRATE 30 MG TABLET PO SCH (08:44)
[2017-07-16] MEDS: CALCIUM (CITRATE)/VITAMIN D 200 MG-125 UNIT TABLET PO SCH (08:44)
[2017-07-16] MEDS: BACITRACIN OINT 0.9 GM PACK TOP SCH (08:44)
[2017-07-16] MEDS: ASPIRIN EC 81 MG TABLET PO SCH (08:44)
[2017-07-16] MEDS: DOCUSATE SODIUM 100 MG CAPSULE PO SCH (08:44)
[2017-07-16] MEDS: metFORMIN 500 MG TABLET PO SCH (08:44)
[2017-07-16] MEDS: MEMANTINE 10 MG TABLET PO SCH (08:44)
[2017-07-16] MEDS: INSULIN ASPART PROTAMINE/ASPART 70/30 100 UNIT/ML SUBCUT SCH ×2 (08:44→12:17)
[2017-07-16] MEDS: ENOXAPARIN 40 MG/0.4 ML SYRINGE SUBCUT SCH (10:03)
[2017-07-16 12:03] VITALS: BP 148/65
== END 2017-07-16 12:59 | disposition home or self-care (01) | DRG 758 ==
LOC: N.ED 13:32 → N.EDINP 17:35 → N.TELEN 18:58 → N.5E 07-11 02:50
PROVIDERS: ADMIT Internal Medicine; ATTEND Internal Medicine

== ENCOUNTER 2017-08-03 11:31 | Inpatient (IN) ==
[~2017-08-03 11:31] MED LIST: ACETAMINOPHEN 325 MG TABLET PO PRN; DEXTROSE 50% 25 GM/50 ML VIAL IV PRN; GLUCAGON 1 MG VIAL IM PRN; HYDROmorphone 2 MG/1 ML VIAL IV PRN; ONDANSETRON 4 MG/2 ML VIAL IV PRN; oxyCODONE/ACETAMINOPHEN 5-325 MG TABLET PO PRN
[2017-08-03] MEDS: SODIUM CHLORIDE 0.45% 1,000 ML IV SCH (14:31)
[2017-08-03] MEDS ORDERED: SKIN HEALING OINT (AQUAPHOR) 50 GM TUBE TOP PRN (17:21)
[2017-08-03] MEDS ORDERED: CHLORHEXIDINE 4% SOLN 118 ML BOTTLE TOP ONE (17:21)
[2017-08-03] MEDS: INSULIN REGULAR 100 UNIT/ML SUBCUT SCH ×2 (17:21→21:55)
[2017-08-03 18:27] LABS: Basophils % 0.4 % (0.0-0.8); Eosinophils # 0.1 10*3/uL (0.0-0.87); Hematocrit 35.7 VOL% (35.7-47.0); Hemoglobin 12.1 GM/DL (12.0-16.0); Immature Granulocytes % 0.4 %; Immature Granulocytes Absolute 0.02 #; Lymphocytes # 1.9 10*3/uL (1.4-4.0); Lymphocytes % 35.6 % (21.3-54.2); Mean Corpuscular HGB Conc 33.9 GM/DL (32-36); Mean Corpuscular Hemoglobin 31 PG (27-34); Mean Corpuscular Volume 91.8 FL (87-102); Mean Platelet Volume 12.1 FL (9.6-12.0); Monocytes # 0.6 10*3/uL (0.11-0.8); Monocytes % 10.6 % (1.7-12.7); Neutrophils # 2.7 10*3/uL (1.4-7.4); Platelet Count 179 T/CUMM (130-400); Red Blood Count 3.89 MC/CUMM (3.8-5.5); Red Cell Distribution Width 12.6 % (9.3-17.3); White Blood Count 5.4 T/CUMM (4-12)
[2017-08-03 18:33] LABS: PT Patient Result 10.7 SECS
[2017-08-03 18:37] LABS: Calcium 9.2 MG/DL (8.5-10.1); Magnesium 1.5 MG/DL (1.8-2.4); Osmolality,Calculated 296.3 MOS/KG (273-304); Potassium 4.1 MMOL/L (3.5-5.1)
[2017-08-03] MEDS: DOCUSATE SODIUM 100 MG CAPSULE PO SCH (20:51)
[2017-08-04] MEDS ORDERED: DIAZEPAM 5 MG TABLET PO ONE ×2 (01:00→12:30)
[2017-08-04 08:04] LABS: Basophils % 0.6 % (0.0-0.8); Eosinophils # 0.1 10*3/uL (0.0-0.87); Immature Granulocytes % 0.2 %; Immature Granulocytes Absolute 0.01 #; Lymphocytes # 1.9 10*3/uL (1.4-4.0); Lymphocytes % 34.2 % (21.3-54.2); Mean Corpuscular HGB Conc 33.3 GM/DL (32-36); Mean Corpuscular Hemoglobin 31 PG (27-34); Mean Corpuscular Volume 91.6 FL (87-102); Mean Platelet Volume 12.2 FL (9.6-12.0); Monocytes # 0.6 10*3/uL (0.11-0.8); Monocytes % 10.5 % (1.7-12.7); Neutrophils # 2.8 10*3/uL (1.4-7.4); Neutrophils % 52.5 % (38.7-73.9); Platelet Count 180 T/CUMM (130-400); Red Blood Count 3.93 MC/CUMM (3.8-5.5); Red Cell Distribution Width 12.5 % (9.3-17.3); White Blood Count 5.4 T/CUMM (4-12)
[2017-08-04 08:43] LABS: Alanine Aminotransferase 13 U/L (13-56); Albumin 2.9 G/DL (3.4-5.0); Alkaline Phosphatase 76 U/L (45-117); Aspartate Amino Transferase 10 U/L (0-37); Bilirubin,Total < 0.39 MG/DL (0.2-1.0); Blood Urea Nitrogen 27 MG/DL (7-18); Calcium 8.9 MG/DL (8.5-10.1); Glucose 163 MG/DL (74-106); Osmolality,Calculated 291.1 MOS/KG (273-304); Potassium 4.2 MMOL/L (3.5-5.1); Sodium 142 MMOL/L (136-145); Total Protein 6.7 G/DL (6.4-8.3)
[2017-08-04] MEDS: INSULIN REGULAR 100 UNIT/ML SUBCUT SCH ×4 (09:26→20:56)
[2017-08-04] MEDS: PANTOPRAZOLE 40 MG TABLET PO SCH (09:27)
[2017-08-04] MEDS: DOCUSATE SODIUM 100 MG CAPSULE PO SCH ×2 (09:27→20:56)
[2017-08-04] MEDS ORDERED: fentaNYL 100 MCG/2 ML VIAL IV ONE ×2 (10:00→15:51)
[2017-08-04] MEDS ORDERED: MIDAZOLAM 2 MG/2 ML VIAL IV ONE ×2 (10:00→15:51)
[2017-08-04] MEDS: SODIUM CHLORIDE 0.45% 1,000 ML IV SCH ×2 (12:30→19:17)
[2017-08-04] MEDS ORDERED: MIDAZOLAM 2 MG/2 ML VIAL ONE (12:36)
[2017-08-04] MEDS ORDERED: HEPARIN/NACL 0.9% 2 UNITS/ML 2,000 ML IV ONE (12:36)
[2017-08-04] MEDS ORDERED: fentaNYL 100 MCG/2 ML VIAL ONE (12:36)
[2017-08-04] MEDS ORDERED: HEPARIN/NACL 0.9% 2 UNITS/ML 1,000 ML IV ONE (13:18)
[2017-08-04] MEDS ORDERED: hydrALAZINE 20 MG/1 ML VIAL ONE ×2 (13:47→15:30)
[2017-08-04] MEDS ORDERED: hydrALAZINE 20 MG/1 ML VIAL IV ONE (13:55)
[2017-08-04] MEDS ORDERED: HEPARIN 1,000 UNIT/1 ML VIAL ONE ×2 (13:58→14:58)
[2017-08-04] MEDS ORDERED: HEPARIN 5,000 UNIT/1 ML VIAL IV ONE (15:00)
[2017-08-04] MEDS ORDERED: HEPARIN 5,000 UNIT/1 ML VIAL IV PRN (15:00)
[2017-08-04] MEDS ORDERED: VANCOMYCIN INJ 500 MG in SODIUM CHLORIDE 0.9% 100 ML IV ONE (15:30)
[2017-08-04] MEDS: hydrALAZINE 20 MG/1 ML VIAL IV PRN (15:45)
[2017-08-04] MEDS: BACITRACIN OINT 0.9 GM PACK TOP SCH (18:15)
[2017-08-05] MEDS: SODIUM CHLORIDE 0.45% 1,000 ML IV SCH (03:49)
[2017-08-05] MEDS: INSULIN REGULAR 100 UNIT/ML SUBCUT SCH ×4 (09:29→21:28)
[2017-08-05] MEDS: PANTOPRAZOLE 40 MG TABLET PO SCH (09:29)
[2017-08-05] MEDS: DOCUSATE SODIUM 100 MG CAPSULE PO SCH ×2 (09:29→21:28)
[2017-08-05] MEDS: BACITRACIN OINT 0.9 GM PACK TOP SCH (09:32)
[2017-08-05] MEDS: hydrALAZINE 20 MG/1 ML VIAL IV PRN (15:57)
[2017-08-06] MEDS: SODIUM CHLORIDE 0.45% 1,000 ML IV SCH ×2 (00:34→20:12)
[2017-08-06] MEDS: INSULIN REGULAR 100 UNIT/ML SUBCUT SCH ×4 (09:30→21:24)
[2017-08-06] MEDS: PANTOPRAZOLE 40 MG TABLET PO SCH (09:31)
[2017-08-06] MEDS: BACITRACIN OINT 0.9 GM PACK TOP SCH (09:31)
[2017-08-06] MEDS: DOCUSATE SODIUM 100 MG CAPSULE PO SCH ×2 (09:31→21:23)
[2017-08-07] MEDS: hydrALAZINE 20 MG/1 ML VIAL IV PRN (04:25)
[2017-08-07 07:57] LABS: Basophils % 0.6 % (0.0-0.8); Eosinophils # 0.2 10*3/uL (0.0-0.87); Eosinophils % 3.2 % (0.00-10.9); Hemoglobin 13.4 GM/DL (12.0-16.0); Immature Granulocytes % 0.2 %; Immature Granulocytes Absolute 0.01 #; Lymphocytes # 1.8 10*3/uL (1.4-4.0); Mean Corpuscular HGB Conc 33.5 GM/DL (32-36); Mean Corpuscular Hemoglobin 31 PG (27-34); Mean Corpuscular Volume 91.1 FL (87-102); Mean Platelet Volume 11.1 FL (9.6-12.0); Monocytes # 0.6 10*3/uL (0.11-0.8); Monocytes % 10.7 % (1.7-12.7); Neutrophils # 2.7 10*3/uL (1.4-7.4); Neutrophils % 51.3 % (38.7-73.9); Platelet Count 176 T/CUMM (130-400); Red Blood Count 4.39 MC/CUMM (3.8-5.5); Red Cell Distribution Width 12.6 % (9.3-17.3); White Blood Count 5.2 T/CUMM (4-12)
[2017-08-07 08:34] LABS: Calcium 9.2 MG/DL (8.5-10.1); Magnesium 1.4 MG/DL (1.8-2.4); Osmolality,Calculated 284.1 MOS/KG (273-304)
[2017-08-07] MEDS: INSULIN REGULAR 100 UNIT/ML SUBCUT SCH ×2 (08:46→12:06)
[2017-08-07] MEDS: DOCUSATE SODIUM 100 MG CAPSULE PO SCH (08:46)
[2017-08-07] MEDS: PANTOPRAZOLE 40 MG TABLET PO SCH (08:46)
[2017-08-07] MEDS: BACITRACIN OINT 0.9 GM PACK TOP SCH (08:46)
[2017-08-07 11:50] VITALS: BP 143/71
[2017-08-07] MEDS ORDERED: SKIN HEALING OINT (AQUAPHOR) 50 GM TUBE TOP PRN (12:57)
[2017-08-07] MEDS ORDERED: INSULIN ASPART PROTAMINE/ASPART 70/30 100 UNIT/ML SUBCUT SCH (17:00)
[2017-08-07] MEDS ORDERED: SERTRALINE 100 MG TABLET PO SCH (19:00)
[2017-08-07] MEDS ORDERED: amLODIPine 5 MG TABLET PO SCH (21:00)
[2017-08-07] MEDS ORDERED: METOPROLOL SUCCINATE XL 50 MG TABLET PO SCH (21:00)
[2017-08-07] MEDS ORDERED: CILOSTAZOL 50 MG TABLET PO SCH (21:00)
[2017-08-07] MEDS ORDERED: PRAVASTATIN 40 MG TABLET PO SCH (21:00)
[2017-08-07] MEDS ORDERED: metFORMIN 500 MG TABLET PO SCH (21:00)
[2017-08-07] MEDS ORDERED: DONEPEZIL 5 MG TABLET PO SCH (21:00)
[2017-08-07] MEDS ORDERED: MEMANTINE 10 MG TABLET PO SCH (21:00)
[2017-08-07] MEDS ORDERED: MAGNESIUM CHLORIDE 64 MG TABLET PO SCH (21:00)
[2017-08-08] MEDS ORDERED: CALCIUM (CITRATE)/VITAMIN D 200 MG-125 UNIT TABLET PO SCH (09:00)
[2017-08-08] MEDS ORDERED: ASPIRIN EC 81 MG TABLET PO SCH ×2 (09:00)
[2017-08-08] MEDS ORDERED: LOSARTAN 50 MG TABLET PO SCH (09:00)
[2017-08-08] MEDS ORDERED: OMEGA 3 ACID ETHYL ESTERS 1 GM CAPSULE PO SCH (09:00)
[2017-08-08] MEDS ORDERED: PANTOPRAZOLE 40 MG TABLET PO SCH (09:00)
[2017-08-08] MEDS ORDERED: ISOSORBIDE MONONITRATE 30 MG TABLET PO SCH (09:00)
== END 2017-08-07 14:35 | disposition swing bed (61) | DRG 253 ==
LOC: N.5E 11:31
PROVIDERS: ADMIT Specialist; ATTEND Specialist

== ENCOUNTER 2018-06-07 09:54 | Inpatient (IN) ==
[2018-06-07] MEDS ORDERED: HYDROmorphone 2 MG/1 ML VIAL IV STA (11:02)
[2018-06-07] MEDS ORDERED: ONDANSETRON 4 MG/2 ML VIAL IV STA (11:02)
[2018-06-07 11:46] LABS: Hematocrit 35.5 VOL% (35.7-47.0); Hemoglobin 11.6 GM/DL (12.0-16.0); Lymphocytes % 18.7 % (21.3-54.2); Mean Corpuscular HGB Conc 32.7 GM/DL (32-36); Mean Corpuscular Hemoglobin 31 PG (27-34); Mean Corpuscular Volume 93.7 FL (87-102); Mean Platelet Volume 11.5 FL (9.6-12.0); Monocytes % 6.6 % (1.7-12.7); Platelet Count 149 T/CUMM (130-400); Red Blood Count 3.79 MC/CUMM (3.8-5.5); Red Cell Distribution Width 12.3 % (9.3-17.3); White Blood Count 7.1 T/CUMM (4-12)
[2018-06-07 11:47] LABS: Basophils % 0.4 % (0.0-0.8); Eosinophils # 0.1 10*3/uL (0.0-0.87); Immature Granulocytes % 0.3 %; Immature Granulocytes Absolute 0.02 #; Lymphocytes # 1.3 10*3/uL (1.4-4.0); Monocytes # 0.5 10*3/uL (0.11-0.8); Neutrophils # 5.1 10*3/uL (1.4-7.4)
[2018-06-07 11:55] LABS: PT Patient Result 10.4 SECS
[2018-06-07 11:59] LABS: Albumin 2.8 G/DL (3.4-5.0); Bilirubin,Total 0.5 MG/DL (0.2-1.0); Calcium 8.9 MG/DL (8.5-10.1); Osmolality,Calculated 297.4 MOS/KG (273-304); Total Protein 6.7 G/DL (6.4-8.3)
[2018-06-07] MEDS ORDERED: GLUCAGON 1 MG VIAL IM PRN (13:09)
[2018-06-07] MEDS ORDERED: ONDANSETRON 4 MG/2 ML VIAL IV PRN (13:09)
[2018-06-07] MEDS ORDERED: HYDROmorphone 2 MG/1 ML VIAL IV PRN (13:09)
[2018-06-07] MEDS ORDERED: ACETAMINOPHEN 325 MG TABLET PO PRN (13:09)
[2018-06-07] MEDS ORDERED: DEXTROSE 50% 25 GM/50 ML VIAL IV PRN (13:09)
[2018-06-07] MEDS: ENOXAPARIN 40 MG/0.4 ML SYRINGE SUBCUT SCH (15:03)
[2018-06-07] MEDS: INSULIN LISPRO 100 UNIT/ML SUBCUT SCH ×3 (15:03→21:07)
[2018-06-07] MEDS: SODIUM CHLORIDE 0.9% 1,000 ML IV SCH (15:03)
[2018-06-07] MEDS ORDERED: SKIN HEALING OINT (AQUAPHOR) 50 GM TUBE TOP PRN (16:56)
[2018-06-07] MEDS ORDERED: traMADol 50 MG TABLET PO PRN (17:01)
[2018-06-07] MEDS: DONEPEZIL 5 MG TABLET PO SCH (21:03)
[2018-06-07] MEDS: CETIRIZINE 10 MG TABLET PO SCH (21:03)
[2018-06-07] MEDS: MEMANTINE 10 MG TABLET PO SCH (21:03)
[2018-06-07] MEDS: METOPROLOL SUCCINATE XL 50 MG TABLET PO SCH (21:04)
[2018-06-07] MEDS: amLODIPine 5 MG TABLET PO SCH (21:04)
[2018-06-07] MEDS: INSULIN NPH/REGULAR 70/30 100 UNIT/ML SUBCUT SCH (21:04)
[2018-06-07] MEDS: DOCUSATE SODIUM 100 MG CAPSULE PO SCH (21:04)
[2018-06-07] MEDS: PRAVASTATIN 40 MG TABLET PO SCH (21:04)
[2018-06-07] MEDS: SERTRALINE 100 MG TABLET PO SCH (21:04)
[2018-06-08] MEDS: CALCIUM (CITRATE)/VITAMIN D 200 MG-125 UNIT TABLET PO SCH (09:26)
[2018-06-08] MEDS: PANTOPRAZOLE 40 MG TABLET PO SCH ×2 (09:26→09:42)
[2018-06-08] MEDS: METOPROLOL SUCCINATE XL 50 MG TABLET PO SCH ×2 (09:26→21:54)
[2018-06-08] MEDS: OMEGA 3 ACID ETHYL ESTERS 1 GM CAPSULE PO SCH (09:26)
[2018-06-08] MEDS: DOCUSATE SODIUM 100 MG CAPSULE PO SCH ×2 (09:26→21:54)
[2018-06-08] MEDS: INSULIN NPH/REGULAR 70/30 100 UNIT/ML SUBCUT SCH ×2 (09:27→21:55)
[2018-06-08] MEDS: MAGNESIUM CHLORIDE 64 MG TABLET PO SCH (09:27)
[2018-06-08] MEDS: MEMANTINE 10 MG TABLET PO SCH ×2 (09:27→21:54)
[2018-06-08] MEDS: LOSARTAN 50 MG TABLET PO SCH (09:27)
[2018-06-08] MEDS: ISOSORBIDE MONONITRATE 30 MG TABLET PO SCH (09:27)
[2018-06-08] MEDS: INSULIN LISPRO 100 UNIT/ML SUBCUT SCH ×4 (09:27→21:55)
[2018-06-08] MEDS: SODIUM CHLORIDE 0.9% 1,000 ML IV SCH ×2 (09:42→12:53)
[2018-06-08] MEDS: ENOXAPARIN 40 MG/0.4 ML SYRINGE SUBCUT SCH (12:24)
[2018-06-08] MEDS: SKIN HEALING OINT (AQUAPHOR) 50 GM TUBE TOP SCH (12:26)
[2018-06-08] MEDS: PRAVASTATIN 40 MG TABLET PO SCH (21:54)
[2018-06-08] MEDS: CETIRIZINE 10 MG TABLET PO SCH (21:54)
[2018-06-08] MEDS: DONEPEZIL 5 MG TABLET PO SCH (21:54)
[2018-06-08] MEDS: amLODIPine 5 MG TABLET PO SCH (21:54)
[2018-06-08] MEDS: SERTRALINE 100 MG TABLET PO SCH (21:54)
[2018-06-09] MEDS: INSULIN LISPRO 100 UNIT/ML SUBCUT SCH ×4 (08:51→20:37)
[2018-06-09] MEDS: LOSARTAN 50 MG TABLET PO SCH (09:51)
[2018-06-09] MEDS: CALCIUM (CITRATE)/VITAMIN D 200 MG-125 UNIT TABLET PO SCH (09:51)
[2018-06-09] MEDS: DOCUSATE SODIUM 100 MG CAPSULE PO SCH ×2 (09:51→20:37)
[2018-06-09] MEDS: SKIN HEALING OINT (AQUAPHOR) 50 GM TUBE TOP SCH (09:51)
[2018-06-09] MEDS: PANTOPRAZOLE 40 MG TABLET PO SCH ×2 (09:52)
[2018-06-09] MEDS: MAGNESIUM CHLORIDE 64 MG TABLET PO SCH (09:52)
[2018-06-09] MEDS: ISOSORBIDE MONONITRATE 30 MG TABLET PO SCH (09:52)
[2018-06-09] MEDS: INSULIN NPH/REGULAR 70/30 100 UNIT/ML SUBCUT SCH ×2 (09:52→20:35)
[2018-06-09] MEDS: OMEGA 3 ACID ETHYL ESTERS 1 GM CAPSULE PO SCH (09:52)
[2018-06-09] MEDS: METOPROLOL SUCCINATE XL 50 MG TABLET PO SCH ×2 (09:52→20:36)
[2018-06-09] MEDS: MEMANTINE 10 MG TABLET PO SCH ×2 (09:52→20:36)
[2018-06-09] MEDS: ENOXAPARIN 40 MG/0.4 ML SYRINGE SUBCUT SCH (13:39)
[2018-06-09] MEDS: SODIUM CHLORIDE 0.9% 1,000 ML IV SCH (15:33)
[2018-06-09] MEDS: DONEPEZIL 5 MG TABLET PO SCH (20:36)
[2018-06-09] MEDS: CETIRIZINE 10 MG TABLET PO SCH (20:36)
[2018-06-09] MEDS: SERTRALINE 100 MG TABLET PO SCH (20:36)
[2018-06-09] MEDS: PRAVASTATIN 40 MG TABLET PO SCH (20:36)
[2018-06-09] MEDS: amLODIPine 5 MG TABLET PO SCH (20:36)
[2018-06-10] MEDS: INSULIN LISPRO 100 UNIT/ML SUBCUT SCH ×4 (08:07→21:16)
[2018-06-10] MEDS: CALCIUM (CITRATE)/VITAMIN D 200 MG-125 UNIT TABLET PO SCH (09:06)
[2018-06-10] MEDS: LOSARTAN 50 MG TABLET PO SCH (09:06)
[2018-06-10] MEDS: DOCUSATE SODIUM 100 MG CAPSULE PO SCH ×3 (09:06→21:15)
[2018-06-10] MEDS: SKIN HEALING OINT (AQUAPHOR) 50 GM TUBE TOP SCH (09:06)
[2018-06-10] MEDS: INSULIN NPH/REGULAR 70/30 100 UNIT/ML SUBCUT SCH ×2 (09:06→21:15)
[2018-06-10] MEDS: MAGNESIUM CHLORIDE 64 MG TABLET PO SCH (09:07)
[2018-06-10] MEDS: MEMANTINE 10 MG TABLET PO SCH ×2 (09:07→21:15)
[2018-06-10] MEDS: ISOSORBIDE MONONITRATE 30 MG TABLET PO SCH (09:07)
[2018-06-10] MEDS: PANTOPRAZOLE 40 MG TABLET PO SCH ×2 (09:07)
[2018-06-10] MEDS: OMEGA 3 ACID ETHYL ESTERS 1 GM CAPSULE PO SCH (09:07)
[2018-06-10] MEDS: METOPROLOL SUCCINATE XL 50 MG TABLET PO SCH ×2 (09:07→21:15)
[2018-06-10 09:17] LABS: Basophils % 0.3 % (0.0-0.8); Eosinophils # 0.1 10*3/uL (0.0-0.87); Eosinophils % 1.4 % (0.00-10.9); Hematocrit 34.1 VOL% (35.7-47.0); Hemoglobin 10.9 GM/DL (12.0-16.0); Immature Granulocytes % 0.4 %; Immature Granulocytes Absolute 0.03 #; Lymphocytes # 1.1 10*3/uL (1.4-4.0); Lymphocytes % 14.5 % (21.3-54.2); Mean Corpuscular Hemoglobin 30 PG (27-34); Mean Platelet Volume 11.5 FL (9.6-12.0); Monocytes # 0.8 10*3/uL (0.11-0.8); Monocytes % 10.3 % (1.7-12.7); Neutrophils # 5.3 10*3/uL (1.4-7.4); Neutrophils % 73.1 % (38.7-73.9); Platelet Count 146 T/CUMM (130-400); Red Blood Count 3.59 MC/CUMM (3.8-5.5); Red Cell Distribution Width 12.4 % (9.3-17.3); White Blood Count 7.3 T/CUMM (4-12)
[2018-06-10 09:32] LABS: Calcium 9.1 MG/DL (8.5-10.1); Osmolality,Calculated 291.6 MOS/KG (273-304); Potassium 3.7 MMOL/L (3.5-5.1)
[2018-06-10] MEDS: ENOXAPARIN 40 MG/0.4 ML SYRINGE SUBCUT SCH (12:28)
[2018-06-10] MEDS: SODIUM CHLORIDE 0.9% 1,000 ML IV SCH (13:43)
[2018-06-10] MEDS: DONEPEZIL 5 MG TABLET PO SCH (21:15)
[2018-06-10] MEDS: CETIRIZINE 10 MG TABLET PO SCH (21:15)
[2018-06-10] MEDS: amLODIPine 5 MG TABLET PO SCH (21:15)
[2018-06-10] MEDS: PRAVASTATIN 40 MG TABLET PO SCH (21:15)
[2018-06-10] MEDS: SERTRALINE 100 MG TABLET PO SCH (21:15)
[2018-06-11] MEDS: INSULIN LISPRO 100 UNIT/ML SUBCUT SCH ×4 (07:19→21:12)
[2018-06-11] MEDS: SODIUM CHLORIDE 0.9% 1,000 ML IV SCH ×2 (07:49→18:00)
[2018-06-11] MEDS: METOPROLOL SUCCINATE XL 50 MG TABLET PO SCH ×2 (08:31→21:10)
[2018-06-11] MEDS: LOSARTAN 50 MG TABLET PO SCH (08:31)
[2018-06-11] MEDS: PANTOPRAZOLE 40 MG TABLET PO SCH ×2 (08:31→08:34)
[2018-06-11] MEDS: MAGNESIUM CHLORIDE 64 MG TABLET PO SCH (08:32)
[2018-06-11] MEDS: ISOSORBIDE MONONITRATE 30 MG TABLET PO SCH (08:32)
[2018-06-11] MEDS: MEMANTINE 10 MG TABLET PO SCH ×2 (08:32→21:10)
[2018-06-11] MEDS: CALCIUM (CITRATE)/VITAMIN D 200 MG-125 UNIT TABLET PO SCH (08:33)
[2018-06-11] MEDS: OMEGA 3 ACID ETHYL ESTERS 1 GM CAPSULE PO SCH (08:33)
[2018-06-11] MEDS: DOCUSATE SODIUM 100 MG CAPSULE PO SCH ×2 (08:33→21:11)
[2018-06-11] MEDS: SKIN HEALING OINT (AQUAPHOR) 50 GM TUBE TOP SCH (08:34)
[2018-06-11] MEDS: INSULIN NPH/REGULAR 70/30 100 UNIT/ML SUBCUT SCH ×2 (08:34→16:07)
[2018-06-11] MEDS: ENOXAPARIN 40 MG/0.4 ML SYRINGE SUBCUT SCH (13:01)
[2018-06-11] MEDS: SERTRALINE 100 MG TABLET PO SCH (21:10)
[2018-06-11] MEDS: PRAVASTATIN 40 MG TABLET PO SCH (21:10)
[2018-06-11] MEDS: CETIRIZINE 10 MG TABLET PO SCH (21:10)
[2018-06-11] MEDS: DONEPEZIL 5 MG TABLET PO SCH (21:11)
[2018-06-11] MEDS: amLODIPine 5 MG TABLET PO SCH (21:12)
[2018-06-12] MEDS: PANTOPRAZOLE 40 MG TABLET PO SCH (08:15)
[2018-06-12] MEDS: MEMANTINE 10 MG TABLET PO SCH (08:15)
[2018-06-12] MEDS: MAGNESIUM CHLORIDE 64 MG TABLET PO SCH (08:15)
[2018-06-12] MEDS: OMEGA 3 ACID ETHYL ESTERS 1 GM CAPSULE PO SCH (08:15)
[2018-06-12] MEDS: METOPROLOL SUCCINATE XL 50 MG TABLET PO SCH (08:16)
[2018-06-12] MEDS: LOSARTAN 50 MG TABLET PO SCH (08:16)
[2018-06-12] MEDS: ISOSORBIDE MONONITRATE 30 MG TABLET PO SCH (08:16)
[2018-06-12] MEDS: DOCUSATE SODIUM 100 MG CAPSULE PO SCH (08:16)
[2018-06-12] MEDS: CALCIUM (CITRATE)/VITAMIN D 200 MG-125 UNIT TABLET PO SCH (08:16)
[2018-06-12] MEDS: INSULIN NPH/REGULAR 70/30 100 UNIT/ML SUBCUT SCH (08:17)
[2018-06-12] MEDS: SKIN HEALING OINT (AQUAPHOR) 50 GM TUBE TOP SCH (08:17)
[2018-06-12] MEDS: INSULIN LISPRO 100 UNIT/ML SUBCUT SCH ×2 (08:18→10:48)
[2018-06-12 11:15] VITALS: BP 125/60
== END 2018-06-12 12:17 | DRG 536 ==
LOC: N.ED 09:54 → N.EDINP 11:08 → N.3E 13:08
PROVIDERS: ADMIT Internal Medicine; ATTEND Internal Medicine

== ENCOUNTER 2019-03-30 12:37 | Inpatient (IN) ==
[2019-03-30 13:51] LABS: Basophils % 0.7 % (0.0-0.8); Eosinophils # 0.1 10*3/uL (0.0-0.87); Eosinophils % 2.2 % (0.00-10.9); Hematocrit 40.2 VOL% (35.7-47.0); Hemoglobin 12.5 GM/DL (12.0-16.0); Immature Granulocytes % 0.4 %; Immature Granulocytes Absolute 0.02 #; Lymphocytes # 1.7 10*3/uL (1.4-4.0); Lymphocytes % 30.2 % (21.3-54.2); Mean Corpuscular HGB Conc 31.1 GM/DL (32-36); Mean Platelet Volume 11.1 FL (9.6-12.0); Monocytes % 7.6 % (1.7-12.7); Neutrophils % 58.9 % (38.7-73.9); Platelet Count 207 T/CUMM (130-400); Red Blood Count 4.23 MC/CUMM (3.8-5.5); Red Cell Distribution Width 12.8 % (9.3-17.3); White Blood Count 5.5 T/CUMM (4-12)
[2019-03-30 14:03] LABS: INR 0.9; Partial Thromboplastin Time 25.9 SECS (0-40)
[2019-03-30 14:09] LABS: Alanine Aminotransferase 33 U/L (13-56); Albumin 3.2 G/DL (3.4-5.0); Alkaline Phosphatase 95 U/L (45-117); Aspartate Amino Transferase 64 U/L (0-37); Bilirubin,Total < 0.39 MG/DL (0.2-1.0); Blood Urea Nitrogen 19 MG/DL (7-18); Calcium 9.1 MG/DL (8.5-10.1); Glucose 250 MG/DL (74-106); Osmolality,Calculated 292.1 MOS/KG (273-304); Total Protein 7.4 G/DL (6.4-8.3)
[2019-03-30 14:20] LABS: Troponin I < 0.015 NG/ML (0.00-0.045)
[2019-03-30] MEDS ORDERED: SODIUM CHLORIDE 0.9% 1,000 ML IV STA (14:43)
[2019-03-30] MEDS ORDERED: ACETAMINOPHEN 325 MG TABLET PO PRN (18:04)
[2019-03-30] MEDS ORDERED: GLUCAGON 1 MG VIAL IM PRN ×3 (18:04→19:13)
[2019-03-30] MEDS ORDERED: ONDANSETRON 4 MG/2 ML VIAL IV PRN (18:04)
[2019-03-30] MEDS ORDERED: SODIUM CHLORIDE 0.9% 1,000 ML IV SCH (18:04)
[2019-03-30] MEDS ORDERED: DEXTROSE 50% 25 GM/50 ML VIAL IV PRN ×3 (18:04→19:13)
[2019-03-30 19:44] LABS: Troponin I < 0.015 NG/ML (0.00-0.045)
[2019-03-30] MEDS ORDERED: CLINDAMYCIN INJ 300 MG in PREMIX 1 EACH IV SCH (20:00)
[2019-03-30] MEDS ORDERED: INSULIN REGULAR 100 UNIT/ML SUBCUT SCH ×2 (21:00)
[2019-03-30] MEDS: CLINDAMYCIN INJ 600 MG in PREMIX 1 EACH IV SCH (21:11)
[2019-03-30] MEDS: SODIUM CHLORIDE 0.9% 1,000 ML IV SCH (21:11)
[2019-03-30] MEDS: DOCUSATE SODIUM 100 MG CAPSULE PO SCH (21:17)
[2019-03-30] MEDS: INSULIN REGULAR 100 UNIT/ML SUBCUT SCH (21:27)
[2019-03-30] MEDS ORDERED: FLUTICASONE 50 MCG NASAL SPRAY 16 GM BOTTLE BOTH NARES PRN (23:20)
[2019-03-30] MEDS ORDERED: MAGNESIUM SULF RIDER 2 GM in PREMIX 1 EACH IV ONE (23:28)
[2019-03-31] MEDS: METOPROLOL SUCCINATE XL 50 MG TABLET PO SCH ×3 (00:06→21:30)
[2019-03-31] MEDS: amLODIPine 10 MG TABLET PO SCH ×2 (00:06→21:30)
[2019-03-31] MEDS: QUEtiapine 25 MG TABLET PO SCH ×2 (00:07→21:30)
[2019-03-31 04:40] LABS: Basophils % 0.4 % (0.0-0.8); Eosinophils # 0.1 10*3/uL (0.0-0.87); Eosinophils % 2.7 % (0.00-10.9); Hematocrit 36.5 VOL% (35.7-47.0); Hemoglobin 11.8 GM/DL (12.0-16.0); Immature Granulocytes % 0.4 %; Immature Granulocytes Absolute 0.02 #; Lymphocytes # 1.6 10*3/uL (1.4-4.0); Mean Corpuscular HGB Conc 32.3 GM/DL (32-36); Mean Corpuscular Volume 92.6 FL (87-102); Mean Platelet Volume 11.7 FL (9.6-12.0); Monocytes % 8.5 % (1.7-12.7); Platelet Count 200 T/CUMM (130-400); Red Blood Count 3.94 MC/CUMM (3.8-5.5); Red Cell Distribution Width 12.9 % (9.3-17.3); White Blood Count 5.2 T/CUMM (4-12)
[2019-03-31] MEDS: CLINDAMYCIN INJ 600 MG in PREMIX 1 EACH IV SCH ×3 (04:57→21:31)
[2019-03-31 05:12] LABS: Alanine Aminotransferase 29 U/L (13-56); Albumin 2.9 G/DL (3.4-5.0); Alkaline Phosphatase 93 U/L (45-117); Aspartate Amino Transferase 56 U/L (0-37); Bilirubin,Total < 0.39 MG/DL (0.2-1.0); Blood Urea Nitrogen 15 MG/DL (7-18); Calcium 9.2 MG/DL (8.5-10.1); Glucose 144 MG/DL (74-106); Total Protein 7.3 G/DL (6.4-8.3)
[2019-03-31] MEDS: INSULIN REGULAR 100 UNIT/ML SUBCUT SCH ×4 (07:49→21:31)
[2019-03-31] MEDS: PANTOPRAZOLE 40 MG TABLET PO SCH (09:58)
[2019-03-31] MEDS: ISOSORBIDE MONONITRATE 30 MG TABLET PO SCH (09:58)
[2019-03-31] MEDS: MAGNESIUM CHLORIDE 64 MG TABLET PO SCH (09:58)
[2019-03-31] MEDS: DOCUSATE SODIUM 100 MG CAPSULE PO SCH ×2 (09:58→21:30)
[2019-03-31] MEDS: INSULIN NPH/REGULAR 70/30 100 UNIT/ML SUBCUT SCH ×2 (09:58→16:49)
[2019-03-31] MEDS: CALCIUM (CITRATE)/VITAMIN D 200 MG-125 UNIT TABLET PO SCH (09:58)
[2019-03-31] MEDS: MEMANTINE 10 MG TABLET PO SCH ×2 (09:59→21:30)
[2019-03-31] MEDS: SODIUM CHLORIDE 0.9% 1,000 ML IV SCH (11:44)
[2019-03-31] MEDS ORDERED: CYANOCOBALAMIN 1000 MCG/1 ML VIAL IM ONE (19:13)
[2019-03-31] MEDS ORDERED: SIMVASTATIN 20 MG TABLET PO SCH (21:00)
[2019-03-31] MEDS: CETIRIZINE 10 MG TABLET PO SCH (21:30)
[2019-03-31] MEDS: SIMVASTATIN 10 MG TABLET PO SCH (21:30)
[2019-04-01] MEDS: SODIUM CHLORIDE 0.9% 1,000 ML IV SCH ×2 (02:12→11:10)
[2019-04-01] MEDS: CLINDAMYCIN INJ 600 MG in PREMIX 1 EACH IV SCH ×3 (05:12→23:07)
[2019-04-01 05:53] LABS: Alanine Aminotransferase 31 U/L (13-56); Albumin 2.7 G/DL (3.4-5.0); Alkaline Phosphatase 94 U/L (45-117); Aspartate Amino Transferase 46 U/L (0-37); Bilirubin,Total < 0.39 MG/DL (0.2-1.0); Blood Urea Nitrogen 16 MG/DL (7-18); Glucose 192 MG/DL (74-106); Osmolality,Calculated 286.3 MOS/KG (273-304); Total Protein 6.9 G/DL (6.4-8.3)
[2019-04-01] MEDS ORDERED: ALBUTEROL 2.5 MG/3 ML NEB RESP TX PRN (08:28)
[2019-04-01] MEDS: MAGNESIUM CHLORIDE 64 MG TABLET PO SCH (08:43)
[2019-04-01] MEDS: PANTOPRAZOLE 40 MG TABLET PO SCH (08:43)
[2019-04-01] MEDS: DOCUSATE SODIUM 100 MG CAPSULE PO SCH ×2 (08:43→23:07)
[2019-04-01] MEDS: MEMANTINE 10 MG TABLET PO SCH ×2 (08:43→22:39)
[2019-04-01] MEDS: METOPROLOL SUCCINATE XL 50 MG TABLET PO SCH ×2 (08:43→22:41)
[2019-04-01] MEDS: INSULIN REGULAR 100 UNIT/ML SUBCUT SCH ×4 (08:44→23:07)
[2019-04-01] MEDS: CALCIUM (CITRATE)/VITAMIN D 200 MG-125 UNIT TABLET PO SCH (08:44)
[2019-04-01] MEDS: INSULIN NPH/REGULAR 70/30 100 UNIT/ML SUBCUT SCH ×2 (08:44→16:23)
[2019-04-01] MEDS: ISOSORBIDE MONONITRATE 30 MG TABLET PO SCH (08:44)
[2019-04-01] MEDS ORDERED: CYANOCOBALAMIN 1000 MCG/1 ML VIAL IM ONE (09:00)
[2019-04-01] MEDS: ASPIRIN EC 81 MG TABLET PO SCH (10:41)
[2019-04-01] MEDS: LOSARTAN 25 MG TABLET PO SCH ×2 (10:41→23:07)
[2019-04-01 12:24] LABS: Troponin I < 0.015 NG/ML (0.00-0.045)
[2019-04-01] MEDS: GABAPENTIN 100 MG CAPSULE PO SCH ×2 (14:59→23:08)
[2019-04-01] MEDS ORDERED: metFORMIN 500 MG TABLET PO SCH (21:00)
[2019-04-01] MEDS: CETIRIZINE 10 MG TABLET PO SCH (22:38)
[2019-04-01] MEDS: SERTRALINE 100 MG TABLET PO SCH (22:39)
[2019-04-01] MEDS: SIMVASTATIN 10 MG TABLET PO SCH (22:40)
[2019-04-01] MEDS: amLODIPine 10 MG TABLET PO SCH (22:40)
[2019-04-01] MEDS: QUEtiapine 25 MG TABLET PO SCH (23:08)
[2019-04-02] MEDS: SODIUM CHLORIDE 0.9% 1,000 ML IV SCH ×2 (04:16→20:49)
[2019-04-02] MEDS: CLINDAMYCIN INJ 600 MG in PREMIX 1 EACH IV SCH ×3 (06:13→21:22)
[2019-04-02 06:24] LABS: Basophils % 0.4 % (0.0-0.8); Eosinophils # 0.1 10*3/uL (0.0-0.87); Eosinophils % 2.4 % (0.00-10.9); Hematocrit 33.3 VOL% (35.7-47.0); Hemoglobin 10.4 GM/DL (12.0-16.0); Immature Granulocytes % 0.4 %; Immature Granulocytes Absolute 0.02 #; Lymphocytes # 1.4 10*3/uL (1.4-4.0); Lymphocytes % 30.6 % (21.3-54.2); Mean Corpuscular HGB Conc 31.2 GM/DL (32-36); Mean Corpuscular Volume 94.3 FL (87-102); Mean Platelet Volume 11.7 FL (9.6-12.0); Monocytes % 9.4 % (1.7-12.7); Neutrophils % 56.8 % (38.7-73.9); Platelet Count 189 T/CUMM (130-400); Red Blood Count 3.53 MC/CUMM (3.8-5.5); Red Cell Distribution Width 13.3 % (9.3-17.3); White Blood Count 4.6 T/CUMM (4-12)
[2019-04-02 06:53] LABS: Calcium 8.5 MG/DL (8.5-10.1); Osmolality,Calculated 291.7 MOS/KG (273-304)
[2019-04-02 06:58] LABS: Albumin 2.5 G/DL (3.4-5.0); Bilirubin,Total 0.5 MG/DL (0.2-1.0); Calcium 8.6 MG/DL (8.5-10.1); Osmolality,Calculated 296.4 MOS/KG (273-304); Total Protein 5.8 G/DL (6.4-8.3)
[2019-04-02] MEDS: INSULIN NPH/REGULAR 70/30 100 UNIT/ML SUBCUT SCH ×2 (08:58→16:35)
[2019-04-02] MEDS: DOCUSATE SODIUM 100 MG CAPSULE PO SCH ×2 (08:59→22:22)
[2019-04-02] MEDS: INSULIN REGULAR 100 UNIT/ML SUBCUT SCH ×4 (08:59→23:12)
[2019-04-02] MEDS: ISOSORBIDE MONONITRATE 30 MG TABLET PO SCH (08:59)
[2019-04-02] MEDS: METOPROLOL SUCCINATE XL 50 MG TABLET PO SCH ×2 (08:59→22:21)
[2019-04-02] MEDS: PANTOPRAZOLE 40 MG TABLET PO SCH (08:59)
[2019-04-02] MEDS: ASPIRIN EC 81 MG TABLET PO SCH (09:00)
[2019-04-02] MEDS: LOSARTAN 25 MG TABLET PO SCH ×2 (09:01→22:19)
[2019-04-02] MEDS: ACETAMINOPHEN 325 MG TABLET PO SCH ×2 (09:01→22:18)
[2019-04-02] MEDS: CALCIUM (CITRATE)/VITAMIN D 200 MG-125 UNIT TABLET PO SCH (09:01)
[2019-04-02] MEDS: MAGNESIUM CHLORIDE 64 MG TABLET PO SCH (09:01)
[2019-04-02] MEDS: GABAPENTIN 100 MG CAPSULE PO SCH ×3 (09:01→22:26)
[2019-04-02] MEDS: MEMANTINE 10 MG TABLET PO SCH ×2 (09:01→22:20)
[2019-04-02] MEDS: SIMVASTATIN 10 MG TABLET PO SCH (22:18)
[2019-04-02] MEDS: CETIRIZINE 10 MG TABLET PO SCH (22:19)
[2019-04-02] MEDS: SERTRALINE 100 MG TABLET PO SCH (22:21)
[2019-04-02] MEDS: amLODIPine 10 MG TABLET PO SCH (22:22)
[2019-04-02] MEDS: QUEtiapine 25 MG TABLET PO SCH (22:26)
[2019-04-03 02:08] LABS: Calcium 8.9 MG/DL (8.5-10.1); Osmolality,Calculated 283.1 MOS/KG (273-304)
[2019-04-03 02:39] LABS: Basophils % 0.6 % (0.0-0.8); Eosinophils # 0.1 10*3/uL (0.0-0.87); Eosinophils % 2.6 % (0.00-10.9); Hematocrit 36.2 VOL% (35.7-47.0); Hemoglobin 11.4 GM/DL (12.0-16.0); Immature Granulocytes % 0.2 %; Immature Granulocytes Absolute 0.01 #; Lymphocytes # 1.7 10*3/uL (1.4-4.0); Lymphocytes % 34.7 % (21.3-54.2); Mean Corpuscular HGB Conc 31.5 GM/DL (32-36); Mean Corpuscular Volume 95.3 FL (87-102); Mean Platelet Volume 11.9 FL (9.6-12.0); Neutrophils % 50.9 % (38.7-73.9); Platelet Count 196 T/CUMM (130-400); Red Cell Distribution Width 13.4 % (9.3-17.3)
[2019-04-03] MEDS: CLINDAMYCIN INJ 600 MG in PREMIX 1 EACH IV SCH ×2 (05:18→12:22)
[2019-04-03] MEDS: SODIUM CHLORIDE 0.9% 1,000 ML IV SCH ×2 (05:32→20:35)
[2019-04-03] MEDS: INSULIN REGULAR 100 UNIT/ML SUBCUT SCH ×4 (09:23→20:37)
[2019-04-03] MEDS: INSULIN NPH/REGULAR 70/30 100 UNIT/ML SUBCUT SCH ×2 (09:24→16:36)
[2019-04-03] MEDS: ACETAMINOPHEN 325 MG TABLET PO SCH ×2 (09:24→20:54)
[2019-04-03] MEDS: METOPROLOL SUCCINATE XL 50 MG TABLET PO SCH ×2 (09:24→20:53)
[2019-04-03] MEDS: PANTOPRAZOLE 40 MG TABLET PO SCH (09:25)
[2019-04-03] MEDS: MAGNESIUM CHLORIDE 64 MG TABLET PO SCH (09:25)
[2019-04-03] MEDS: GABAPENTIN 100 MG CAPSULE PO SCH ×3 (09:25→20:53)
[2019-04-03] MEDS: MEMANTINE 10 MG TABLET PO SCH ×2 (09:25→20:59)
[2019-04-03] MEDS: LOSARTAN 25 MG TABLET PO SCH (09:25)
[2019-04-03] MEDS: ASPIRIN EC 81 MG TABLET PO SCH (09:25)
[2019-04-03] MEDS: DOCUSATE SODIUM 100 MG CAPSULE PO SCH ×2 (09:25→20:52)
[2019-04-03] MEDS: CALCIUM (CITRATE)/VITAMIN D 200 MG-125 UNIT TABLET PO SCH (09:25)
[2019-04-03] MEDS: ISOSORBIDE MONONITRATE 30 MG TABLET PO SCH (09:25)
[2019-04-03] MEDS: LOSARTAN 50 MG TABLET PO SCH ×2 (14:09→20:53)
[2019-04-03] MEDS: CLINDAMYCIN 300 MG CAPSULE PO SCH ×2 (14:10→20:59)
[2019-04-03] MEDS ORDERED: INSULIN NPH/REGULAR 70/30 100 UNIT/ML SUBCUT SCH (16:30)
[2019-04-03] MEDS: CETIRIZINE 10 MG TABLET PO SCH (20:52)
[2019-04-03] MEDS: QUEtiapine 25 MG TABLET PO SCH (20:53)
[2019-04-03] MEDS: amLODIPine 10 MG TABLET PO SCH (20:53)
[2019-04-03] MEDS: SERTRALINE 100 MG TABLET PO SCH (20:54)
[2019-04-03] MEDS: SIMVASTATIN 10 MG TABLET PO SCH (20:54)
[2019-04-04] MEDS: CLINDAMYCIN 300 MG CAPSULE PO SCH ×2 (05:18→14:06)
[2019-04-04 05:59] LABS: Basophils % 0.7 % (0.0-0.8); Eosinophils # 0.1 10*3/uL (0.0-0.87); Eosinophils % 2.5 % (0.00-10.9); Hematocrit 38.1 VOL% (35.7-47.0); Hemoglobin 11.8 GM/DL (12.0-16.0); Immature Granulocytes % 0.4 %; Immature Granulocytes Absolute 0.02 #; Lymphocytes # 1.4 10*3/uL (1.4-4.0); Lymphocytes % 25.4 % (21.3-54.2); Mean Corpuscular Volume 95.3 FL (87-102); Monocytes % 9.2 % (1.7-12.7); Neutrophils % 61.8 % (38.7-73.9); Platelet Count 159 T/CUMM (130-400); Red Cell Distribution Width 13.3 % (9.3-17.3); White Blood Count 5.6 T/CUMM (4-12)
[2019-04-04 06:24] LABS: Calcium 9.2 MG/DL (8.5-10.1)
[2019-04-04] MEDS: SODIUM CHLORIDE 0.9% 1,000 ML IV SCH (08:16)
[2019-04-04] MEDS: INSULIN REGULAR 100 UNIT/ML SUBCUT SCH ×2 (08:16→11:55)
[2019-04-04] MEDS ORDERED: INSULIN NPH/REGULAR 70/30 100 UNIT/ML SUBCUT SCH (08:30)
[2019-04-04] MEDS: ACETAMINOPHEN 325 MG TABLET PO SCH (09:53)
[2019-04-04] MEDS: GABAPENTIN 100 MG CAPSULE PO SCH ×2 (09:53→14:07)
[2019-04-04] MEDS: ASPIRIN EC 81 MG TABLET PO SCH (09:53)
[2019-04-04] MEDS: METOPROLOL SUCCINATE XL 50 MG TABLET PO SCH (09:53)
[2019-04-04] MEDS: MAGNESIUM CHLORIDE 64 MG TABLET PO SCH (09:53)
[2019-04-04] MEDS: ISOSORBIDE MONONITRATE 30 MG TABLET PO SCH (09:53)
[2019-04-04] MEDS: LOSARTAN 50 MG TABLET PO SCH (09:53)
[2019-04-04] MEDS: DOCUSATE SODIUM 100 MG CAPSULE PO SCH (09:53)
[2019-04-04] MEDS: PANTOPRAZOLE 40 MG TABLET PO SCH (09:54)
[2019-04-04] MEDS: MEMANTINE 10 MG TABLET PO SCH (09:54)
[2019-04-04] MEDS: CALCIUM (CITRATE)/VITAMIN D 200 MG-125 UNIT TABLET PO SCH (09:57)
[2019-04-04 11:47] VITALS: BP 160/59
[2019-04-04 12:08] LABS: Apearance,Urine CLEAR (Clear); Bacteria,Urine Occasional /HPF (Few); Bilirubin,Urine Negative (Negative); Blood, Urine Small mg/dL (Negative); Glucose,Urine (UA) Negative (Negative); Ketones,Urine Negative (Negative); Mucus,Urine Occasional /LPF (Occasional); Nitrite,Urine Negative (Negative); Protein,Urine Negative; RBC,Urine 1 /HPF (0-4); Squamous Epithelial Cell,Urine Occasional /HPF (0-10); Urine Color Colorless (Yellow); Urine Specific Gravity 1.004 (1.001-1.035); Urine Urobilinogen < 2.0 EU/DL (0.2-1.0); WBC,Urine <1 /HPF (0-6)
== END 2019-04-04 15:18 | disposition home health service (06) | DRG 313 ==
LOC: EDUNIT# → EDBD → N.ED 12:37 → N.EDINP 12:37 → N.TELEN 17:07
PROVIDERS: ADMIT Internal Medicine; ATTEND Internal Medicine

== ENCOUNTER 2020-07-28 01:36 | Inpatient (IN) ==
[2020-07-28] MEDS ORDERED: methylPREDNISolone SOD SUC 125 MG/2 ML VIAL IV STA (02:06)
[2020-07-28] MEDS ORDERED: ONDANSETRON 4 MG/2 ML VIAL IV STA (02:06)
[2020-07-28] MEDS ORDERED: LEVOFLOXACIN INJ 500 MG in PREMIX 1 EACH IV STA (02:48)
[2020-07-28] MEDS ORDERED: SODIUM CHLORIDE 0.9% 500 ML IV STA (02:48)
[2020-07-28 03:12] LABS: Basophils % 0.3 % (0.0-0.8); Eosinophils # 0.1 10*3/uL (0.0-0.87); Eosinophils % 0.6 % (0.00-10.9); Hematocrit 40.2 VOL% (35.7-47.0); Hemoglobin 13.7 GM/DL (12.0-16.0); Immature Granulocytes % 1.1 %; Immature Granulocytes Absolute 0.14 #; Lymphocytes # 0.6 10*3/uL (1.4-4.0); Lymphocytes % 4.4 % (21.3-54.2); Mean Corpuscular HGB Conc 34.1 GM/DL (32-36); Mean Corpuscular Volume 91.8 FL (87-102); Monocytes % 11.1 % (1.7-12.7); Neutrophils % 82.5 % (38.7-73.9); Platelet Count 179 T/CUMM (130-400); Red Blood Count 4.38 MC/CUMM (3.8-5.5); Red Cell Distribution Width 12.6 % (9.3-17.3); White Blood Count 12.6 T/CUMM (4-12)
[2020-07-28 03:24] LABS: INR 1.1; PT Patient Result 11.4 SECS (9.8-11.9)
[2020-07-28 03:29] LABS: Bilirubin,Urine Negative (Negative); Blood, Urine Small mg/dL (Negative); Glucose,Urine (UA) 50 mg/dL (Negative); Ketones,Urine Negative (Negative); Mucus,Urine Occasional /LPF (Occasional); Nitrite,Urine Negative (Negative); Protein,Urine >=500 MG/DL; Urine Appearance CLOUDY (Clear); Urine Color Amber (Yellow); Urine Specific Gravity 1.026 (1.001-1.035); WBC,Urine 28 /HPF (0-6)
[2020-07-28] MEDS ORDERED: ALBUTEROL/IPRATROPIUM 3 ML NEB RESP TX STA (03:43)
[2020-07-28 03:45] LABS: Band Neutrophils 3 % (0-10); Lymphocytes 5 % (20-55); Microcytosis Slight; Platelet Estimate Normal; Segmented Neutrophils 83 % (50-85); Total Cells Counted 100
[2020-07-28 03:49] LABS: Albumin 3.1 G/DL (3.4-5.0); Bilirubin,Total 0.7 MG/DL (0.2-1.0); Calcium 9.7 MG/DL (8.5-10.1); Osmolality,Calculated 291.3 MOS/KG (273-304); Total Protein 6.8 G/DL (6.4-8.3)
[2020-07-28 03:52] LABS: Polychromasia Slight
[2020-07-28] MEDS ORDERED: MAGNESIUM SULF RIDER 2 GM in PREMIX 1 EACH IV STA (03:53)
[2020-07-28] MEDS ORDERED: VANCOMYCIN INJ 1,000 MG in SODIUM CHLORIDE 0.9% 250 ML IV STA (04:19)
[2020-07-28] MEDS ORDERED: DEXTROSE 50% 25 GM/50 ML VIAL IV PRN (06:54)
[2020-07-28] MEDS ORDERED: GLUCAGON 1 MG VIAL IM PRN (06:54)
[2020-07-28] MEDS ORDERED: ACETAMINOPHEN 325 MG TABLET PO PRN (06:54)
[2020-07-28] MEDS ORDERED: ONDANSETRON 4 MG/2 ML VIAL IV PRN (06:54)
[2020-07-28] MEDS ORDERED: VANCOMYCIN INJ 1,000 MG in SODIUM CHLORIDE 0.9% 250 ML IV SCH (06:54)
[2020-07-28] MEDS ORDERED: MORPHINE 4 MG/1 ML VIAL IV PRN (06:54)
[2020-07-28] MEDS: INSULIN REGULAR 100 UNIT/ML SUBCUT SCH ×3 (07:30→18:38)
[2020-07-28] MEDS: ALBUTEROL/IPRATROPIUM 3 ML NEB RESP TX SCH ×4 (07:31→19:28)
[2020-07-28] MEDS: SODIUM CHLORIDE 0.9% 1,000 ML IV SCH ×3 (08:30→23:15)
[2020-07-28] MEDS ORDERED: FLUTICASONE 50 MCG NASAL SPRAY 16 GM BOTTLE BOTH NARES PRN (08:56)
[2020-07-28] MEDS: ENOXAPARIN 40 MG/0.4 ML SYRINGE SUBCUT SCH (09:00)
[2020-07-28] MEDS ORDERED: VANCOMYCIN INJ 2,250 MG in SODIUM CHLORIDE 0.9% 500 ML IV ONE (09:00)
[2020-07-28] MEDS ORDERED: metFORMIN 500 MG TABLET PO SCH ×2 (09:00→21:00)
[2020-07-28] MEDS: PANTOPRAZOLE 40 MG VIAL IV SCH (09:30)
[2020-07-28] MEDS: LEVOFLOXACIN INJ 500 MG in PREMIX 1 EACH IV SCH (09:37)
[2020-07-28] MEDS: MEMANTINE 10 MG TABLET PO SCH ×2 (11:00→20:40)
[2020-07-28] MEDS: ISOSORBIDE MONONITRATE 30 MG TABLET PO SCH (11:00)
[2020-07-28] MEDS: METOPROLOL SUCCINATE XL 50 MG TABLET PO SCH ×2 (11:00→20:40)
[2020-07-28] MEDS: PANTOPRAZOLE 40 MG TABLET PO SCH (16:36)
[2020-07-28] MEDS: DOCUSATE SODIUM 100 MG CAPSULE PO SCH ×2 (18:31→20:37)
[2020-07-28] MEDS: INSULIN NPH/REGULAR 70/30 100 UNIT/ML SUBCUT SCH (18:32)
[2020-07-28] MEDS: DONEPEZIL 10 MG TABLET PO SCH (20:38)
[2020-07-28] MEDS: amLODIPine 10 MG TABLET PO SCH (20:39)
[2020-07-28] MEDS: SIMVASTATIN 20 MG TABLET PO SCH (20:39)
[2020-07-28] MEDS: SERTRALINE 100 MG TABLET PO SCH (20:39)
[2020-07-29] MEDS: INSULIN REGULAR 100 UNIT/ML SUBCUT SCH ×4 (01:37→18:51)
[2020-07-29] MEDS: ALBUTEROL/IPRATROPIUM 3 ML NEB RESP TX SCH ×7 (02:13→23:58)
[2020-07-29] MEDS: VANCOMYCIN INJ 1,500 MG in SODIUM CHLORIDE 0.9% 500 ML IV SCH (04:32)
[2020-07-29 06:13] LABS: Osmolality,Calculated 287.3 MOS/KG (273-304)
[2020-07-29 06:16] LABS: Basophils % 0.2 % (0.0-0.8); Immature Granulocytes % 0.8 %; Lymphocytes % 7.7 % (21.3-54.2); Mean Corpuscular HGB Conc 34.4 GM/DL (32-36); Mean Corpuscular Volume 91.4 FL (87-102); Mean Platelet Volume 12.3 FL (9.6-12.0); Monocytes % 10.4 % (1.7-12.7); Neutrophils % 80.9 % (38.7-73.9)
[2020-07-29 06:22] LABS: Platelet Count 142 T/CUMM (130-400)
[2020-07-29 06:38] LABS: Band Neutrophils 1 % (0-10); Hypochromasia 1+; Lymphocytes 6 % (20-55); Microcytosis 1+; Platelet Estimate Adequate; Segmented Neutrophils 80 % (50-85); Total Cells Counted 100
[2020-07-29 06:40] LABS: Albumin 2.6 G/DL (3.4-5.0); Bilirubin,Total 0.4 MG/DL (0.2-1.0); Calcium 9.1 MG/DL (8.5-10.1); Osmolality,Calculated 287.3 MOS/KG (273-304); Total Protein 6.3 G/DL (6.4-8.3)
[2020-07-29] MEDS: ENOXAPARIN 40 MG/0.4 ML SYRINGE SUBCUT SCH (07:19)
[2020-07-29] MEDS: LEVOFLOXACIN INJ 500 MG in PREMIX 1 EACH IV SCH (08:13)
[2020-07-29] MEDS: SODIUM CHLORIDE 0.9% 1,000 ML IV SCH ×3 (08:16→16:55)
[2020-07-29] MEDS: PANTOPRAZOLE 40 MG VIAL IV SCH (09:06)
[2020-07-29] MEDS: MEMANTINE 10 MG TABLET PO SCH ×2 (09:06→22:22)
[2020-07-29] MEDS: ISOSORBIDE MONONITRATE 30 MG TABLET PO SCH (09:06)
[2020-07-29] MEDS: DOCUSATE SODIUM 100 MG CAPSULE PO SCH ×2 (09:06→22:23)
[2020-07-29] MEDS: METOPROLOL SUCCINATE XL 50 MG TABLET PO SCH ×2 (09:06→22:22)
[2020-07-29] MEDS: PANTOPRAZOLE 40 MG TABLET PO SCH (09:06)
[2020-07-29] MEDS: INSULIN NPH/REGULAR 70/30 100 UNIT/ML SUBCUT SCH ×2 (09:07→15:50)
[2020-07-29] MEDS: ZINC OXIDE 16% PASTE 57 GM TUBE TOP SCH ×2 (14:25→22:23)
[2020-07-29] MEDS: amLODIPine 10 MG TABLET PO SCH (22:20)
[2020-07-29] MEDS: SIMVASTATIN 20 MG TABLET PO SCH (22:20)
[2020-07-29] MEDS: QUEtiapine 25 MG TABLET PO SCH (22:22)
[2020-07-29] MEDS: SERTRALINE 100 MG TABLET PO SCH (22:22)
[2020-07-29] MEDS: DONEPEZIL 10 MG TABLET PO SCH ×2 (22:23)
[2020-07-30] MEDS: VANCOMYCIN INJ 1,500 MG in SODIUM CHLORIDE 0.9% 500 ML IV SCH (00:03)
[2020-07-30] MEDS: INSULIN REGULAR 100 UNIT/ML SUBCUT SCH ×5 (00:14→23:08)
[2020-07-30] MEDS: ALBUTEROL/IPRATROPIUM 3 ML NEB RESP TX SCH ×5 (03:32→20:23)
[2020-07-30] MEDS: SODIUM CHLORIDE 0.9% 1,000 ML IV SCH ×2 (05:36→18:39)
[2020-07-30] MEDS: ENOXAPARIN 40 MG/0.4 ML SYRINGE SUBCUT SCH (06:00)
[2020-07-30] MEDS: LEVOFLOXACIN INJ 500 MG in PREMIX 1 EACH IV SCH (06:00)
[2020-07-30 06:04] LABS: Basophils % 0.3 % (0.0-0.8); Eosinophils % 0.4 % (0.00-10.9); Hematocrit 34.3 VOL% (35.7-47.0); Hemoglobin 11.3 GM/DL (12.0-16.0); Immature Granulocytes % 0.5 %; Immature Granulocytes Absolute 0.05 #; Lymphocytes # 1.1 10*3/uL (1.4-4.0); Lymphocytes % 11.3 % (21.3-54.2); Mean Corpuscular HGB Conc 32.9 GM/DL (32-36); Mean Corpuscular Volume 93.5 FL (87-102); Mean Platelet Volume 12.9 FL (9.6-12.0); Monocytes % 9.5 % (1.7-12.7); Platelet Count 115 T/CUMM (130-400); Red Blood Count 3.67 MC/CUMM (3.8-5.5); Red Cell Distribution Width 12.9 % (9.3-17.3); White Blood Count 9.9 T/CUMM (4-12)
[2020-07-30 06:09] LABS: Calcium 8.8 MG/DL (8.5-10.1); Osmolality,Calculated 293.8 MOS/KG (273-304)
[2020-07-30] MEDS: METOPROLOL SUCCINATE XL 50 MG TABLET PO SCH ×2 (08:29→21:23)
[2020-07-30] MEDS: DOCUSATE SODIUM 100 MG CAPSULE PO SCH ×2 (08:29→21:23)
[2020-07-30] MEDS: PANTOPRAZOLE 40 MG TABLET PO SCH (08:29)
[2020-07-30] MEDS: ISOSORBIDE MONONITRATE 30 MG TABLET PO SCH (08:29)
[2020-07-30] MEDS: MEMANTINE 10 MG TABLET PO SCH ×2 (08:29→21:23)
[2020-07-30] MEDS: ZINC OXIDE 16% PASTE 57 GM TUBE TOP SCH ×2 (08:29→21:26)
[2020-07-30] MEDS: INSULIN NPH/REGULAR 70/30 100 UNIT/ML SUBCUT SCH ×2 (09:13→18:39)
[2020-07-30] MEDS: PANTOPRAZOLE 40 MG VIAL IV SCH (09:32)
[2020-07-30] MEDS: DONEPEZIL 10 MG TABLET PO SCH ×2 (21:24→21:26)
[2020-07-30] MEDS: SERTRALINE 100 MG TABLET PO SCH (21:24)
[2020-07-30] MEDS: amLODIPine 10 MG TABLET PO SCH (21:24)
[2020-07-30] MEDS: SIMVASTATIN 20 MG TABLET PO SCH (21:24)
[2020-07-30] MEDS: QUEtiapine 25 MG TABLET PO SCH (21:24)
[2020-07-31] MEDS: ALBUTEROL/IPRATROPIUM 3 ML NEB RESP TX SCH ×7 (00:05→23:49)
[2020-07-31 05:22] LABS: Basophils % 0.4 % (0.0-0.8); Eosinophils # 0.1 10*3/uL (0.0-0.87); Eosinophils % 0.9 % (0.00-10.9); Hematocrit 30.5 VOL% (35.7-47.0); Hemoglobin 10.2 GM/DL (12.0-16.0); Immature Granulocytes % 0.7 %; Immature Granulocytes Absolute 0.05 #; Lymphocytes % 13.4 % (21.3-54.2); Mean Corpuscular HGB Conc 33.4 GM/DL (32-36); Mean Corpuscular Volume 94.4 FL (87-102); Mean Platelet Volume 11.8 FL (9.6-12.0); Monocytes % 9.9 % (1.7-12.7); Neutrophils % 74.7 % (38.7-73.9); Platelet Count 145 T/CUMM (130-400); Red Blood Count 3.23 MC/CUMM (3.8-5.5); Red Cell Distribution Width 12.8 % (9.3-17.3); White Blood Count 7.7 T/CUMM (4-12)
[2020-07-31 05:45] LABS: Calcium 8.5 MG/DL (8.5-10.1)
[2020-07-31] MEDS ORDERED: VANCOMYCIN INJ 1,250 MG in SODIUM CHLORIDE 0.9% 250 ML IV SCH (06:00)
[2020-07-31] MEDS: INSULIN REGULAR 100 UNIT/ML SUBCUT SCH ×3 (06:12→18:05)
[2020-07-31] MEDS: DOCUSATE SODIUM 100 MG CAPSULE PO SCH ×2 (09:18→20:49)
[2020-07-31] MEDS: MEMANTINE 10 MG TABLET PO SCH ×2 (09:18→20:52)
[2020-07-31] MEDS: METOPROLOL SUCCINATE XL 50 MG TABLET PO SCH ×2 (09:18→20:50)
[2020-07-31] MEDS: PANTOPRAZOLE 40 MG TABLET PO SCH (09:18)
[2020-07-31] MEDS: ISOSORBIDE MONONITRATE 30 MG TABLET PO SCH (09:18)
[2020-07-31] MEDS: ZINC OXIDE 16% PASTE 57 GM TUBE TOP SCH ×2 (09:19→20:53)
[2020-07-31] MEDS: INSULIN NPH/REGULAR 70/30 100 UNIT/ML SUBCUT SCH ×2 (09:19→18:04)
[2020-07-31] MEDS: ENOXAPARIN 40 MG/0.4 ML SYRINGE SUBCUT SCH (09:19)
[2020-07-31] MEDS: LEVOFLOXACIN INJ 500 MG in PREMIX 1 EACH IV SCH (09:20)
[2020-07-31] MEDS: PANTOPRAZOLE 40 MG VIAL IV SCH (09:28)
[2020-07-31] MEDS ORDERED: VANCOMYCIN INJ 1,250 MG in SODIUM CHLORIDE 0.9% 250 ML IV PRN (10:30)
[2020-07-31] MEDS: SODIUM CHLORIDE 0.9% 1,000 ML IV SCH ×2 (15:30→20:52)
[2020-07-31] MEDS: amLODIPine 10 MG TABLET PO SCH (20:50)
[2020-07-31] MEDS: QUEtiapine 25 MG TABLET PO SCH (20:50)
[2020-07-31] MEDS: SERTRALINE 100 MG TABLET PO SCH (20:51)
[2020-07-31] MEDS: DONEPEZIL 10 MG TABLET PO SCH ×2 (20:51→20:53)
[2020-07-31] MEDS: SIMVASTATIN 20 MG TABLET PO SCH (20:51)
[2020-08-01] MEDS: INSULIN REGULAR 100 UNIT/ML SUBCUT SCH ×4 (01:07→19:04)
[2020-08-01] MEDS: ALBUTEROL/IPRATROPIUM 3 ML NEB RESP TX SCH ×6 (03:39→23:58)
[2020-08-01] MEDS: MEMANTINE 10 MG TABLET PO SCH ×2 (10:37→22:39)
[2020-08-01] MEDS: DOCUSATE SODIUM 100 MG CAPSULE PO SCH ×2 (10:37→22:38)
[2020-08-01] MEDS: METOPROLOL SUCCINATE XL 50 MG TABLET PO SCH ×2 (10:37→22:40)
[2020-08-01] MEDS: PANTOPRAZOLE 40 MG TABLET PO SCH (10:37)
[2020-08-01] MEDS: ISOSORBIDE MONONITRATE 30 MG TABLET PO SCH (10:37)
[2020-08-01] MEDS: ZINC OXIDE 16% PASTE 57 GM TUBE TOP SCH ×2 (10:37→22:41)
[2020-08-01] MEDS: INSULIN NPH/REGULAR 70/30 100 UNIT/ML SUBCUT SCH ×2 (10:38→19:01)
[2020-08-01] MEDS: ENOXAPARIN 40 MG/0.4 ML SYRINGE SUBCUT SCH (10:39)
[2020-08-01] MEDS: LEVOFLOXACIN INJ 500 MG in PREMIX 1 EACH IV SCH (10:40)
[2020-08-01] MEDS: PANTOPRAZOLE 40 MG VIAL IV SCH (10:41)
[2020-08-01] MEDS: VANCOMYCIN INJ 1,250 MG in SODIUM CHLORIDE 0.9% 250 ML IV SCH (13:49)
[2020-08-01] MEDS: amLODIPine 10 MG TABLET PO SCH (22:38)
[2020-08-01] MEDS: DONEPEZIL 10 MG TABLET PO SCH ×2 (22:38→22:41)
[2020-08-01] MEDS: SIMVASTATIN 20 MG TABLET PO SCH (22:39)
[2020-08-01] MEDS: QUEtiapine 25 MG TABLET PO SCH (22:39)
[2020-08-01] MEDS: SERTRALINE 100 MG TABLET PO SCH (22:40)
[2020-08-02] MEDS: INSULIN REGULAR 100 UNIT/ML SUBCUT SCH ×4 (00:36→17:14)
[2020-08-02] MEDS ORDERED: LOSARTAN 50 MG TABLET PO ONE (00:57)
[2020-08-02] MEDS: ALBUTEROL/IPRATROPIUM 3 ML NEB RESP TX SCH ×6 (03:58→23:40)
[2020-08-02] MEDS: METOPROLOL SUCCINATE XL 50 MG TABLET PO SCH ×2 (08:37→20:36)
[2020-08-02] MEDS: ISOSORBIDE MONONITRATE 30 MG TABLET PO SCH (08:37)
[2020-08-02] MEDS: DOCUSATE SODIUM 100 MG CAPSULE PO SCH ×2 (08:37→20:35)
[2020-08-02] MEDS: MEMANTINE 10 MG TABLET PO SCH ×2 (08:38→20:36)
[2020-08-02] MEDS: ENOXAPARIN 40 MG/0.4 ML SYRINGE SUBCUT SCH (08:38)
[2020-08-02] MEDS: PANTOPRAZOLE 40 MG TABLET PO SCH (08:38)
[2020-08-02] MEDS: LOSARTAN 50 MG TABLET PO SCH ×2 (08:38→20:37)
[2020-08-02] MEDS: ZINC OXIDE 16% PASTE 57 GM TUBE TOP SCH ×2 (08:40→20:38)
[2020-08-02] MEDS: LEVOFLOXACIN INJ 500 MG in PREMIX 1 EACH IV SCH (11:02)
[2020-08-02] MEDS: PANTOPRAZOLE 40 MG VIAL IV SCH (11:03)
[2020-08-02] MEDS: INSULIN NPH/REGULAR 70/30 100 UNIT/ML SUBCUT SCH ×2 (12:48→17:14)
[2020-08-02] MEDS ORDERED: amLODIPine 10 MG TABLET PO ONE (16:16)
[2020-08-02] MEDS: QUEtiapine 25 MG TABLET PO SCH (20:35)
[2020-08-02] MEDS: SERTRALINE 100 MG TABLET PO SCH (20:37)
[2020-08-02] MEDS: SIMVASTATIN 20 MG TABLET PO SCH (20:37)
[2020-08-02] MEDS: DONEPEZIL 10 MG TABLET PO SCH ×2 (20:38→20:39)
[2020-08-02] MEDS: amLODIPine 10 MG TABLET PO SCH (20:38)
[2020-08-03] MEDS: INSULIN REGULAR 100 UNIT/ML SUBCUT SCH ×4 (01:46→19:01)
[2020-08-03] MEDS: hydrALAZINE 20 MG/1 ML VIAL IV PRN ×2 (01:46→13:52)
[2020-08-03] MEDS: ALBUTEROL/IPRATROPIUM 3 ML NEB RESP TX SCH ×7 (02:52→23:30)
[2020-08-03 05:55] LABS: Basophils % 0.3 % (0.0-0.8); Eosinophils # 0.2 10*3/uL (0.0-0.87); Eosinophils % 2.4 % (0.00-10.9); Hematocrit 32.4 VOL% (35.7-47.0); Hemoglobin 10.7 GM/DL (12.0-16.0); Immature Granulocytes % 0.6 %; Immature Granulocytes Absolute 0.04 #; Lymphocytes % 16.8 % (21.3-54.2); Mean Corpuscular Volume 94.2 FL (87-102); Mean Platelet Volume 11.5 FL (9.6-12.0); Monocytes % 13.6 % (1.7-12.7); Neutrophils % 66.3 % (38.7-73.9); Platelet Count 148 T/CUMM (130-400); Red Blood Count 3.44 MC/CUMM (3.8-5.5); Red Cell Distribution Width 12.8 % (9.3-17.3); White Blood Count 6.2 T/CUMM (4-12)
[2020-08-03 07:54] LABS: Calcium 8.2 MG/DL (8.5-10.1); Osmolality,Calculated 292.6 MOS/KG (273-304)
[2020-08-03] MEDS ORDERED: FUROSEMIDE 40 MG TABLET PO ONE (08:26)
[2020-08-03] MEDS: DOCUSATE SODIUM 100 MG CAPSULE PO SCH ×2 (08:54→22:11)
[2020-08-03] MEDS: ISOSORBIDE MONONITRATE 30 MG TABLET PO SCH (08:55)
[2020-08-03] MEDS: PANTOPRAZOLE 40 MG TABLET PO SCH (08:55)
[2020-08-03] MEDS: METOPROLOL SUCCINATE XL 50 MG TABLET PO SCH ×2 (08:55→22:10)
[2020-08-03] MEDS: ENOXAPARIN 40 MG/0.4 ML SYRINGE SUBCUT SCH (08:55)
[2020-08-03] MEDS: PANTOPRAZOLE 40 MG VIAL IV SCH (08:55)
[2020-08-03] MEDS: MEMANTINE 10 MG TABLET PO SCH ×2 (08:55→22:10)
[2020-08-03] MEDS: LOSARTAN 50 MG TABLET PO SCH ×2 (08:55→22:12)
[2020-08-03] MEDS: INSULIN NPH/REGULAR 70/30 100 UNIT/ML SUBCUT SCH ×2 (08:56→17:04)
[2020-08-03] MEDS: LEVOFLOXACIN INJ 500 MG in PREMIX 1 EACH IV SCH (09:01)
[2020-08-03] MEDS: ZINC OXIDE 16% PASTE 57 GM TUBE TOP SCH ×2 (09:04→22:12)
[2020-08-03] MEDS: SODIUM CHLORIDE 0.9% 1,000 ML IV SCH (10:06)
[2020-08-03] MEDS: VANCOMYCIN INJ 1,250 MG in SODIUM CHLORIDE 0.9% 250 ML IV SCH (11:22)
[2020-08-03] MEDS: QUEtiapine 25 MG TABLET PO SCH (22:10)
[2020-08-03] MEDS: SIMVASTATIN 20 MG TABLET PO SCH (22:10)
[2020-08-03] MEDS: DONEPEZIL 10 MG TABLET PO SCH ×2 (22:11)
[2020-08-03] MEDS: amLODIPine 10 MG TABLET PO SCH (22:11)
[2020-08-03] MEDS: SERTRALINE 100 MG TABLET PO SCH (22:12)
[2020-08-04] MEDS: INSULIN REGULAR 100 UNIT/ML SUBCUT SCH ×4 (01:35→18:58)
[2020-08-04] MEDS: ALBUTEROL/IPRATROPIUM 3 ML NEB RESP TX SCH ×5 (03:00→19:04)
[2020-08-04] MEDS: SODIUM CHLORIDE 0.9% 1,000 ML IV SCH ×2 (06:16→10:05)
[2020-08-04] MEDS: hydrALAZINE 20 MG/1 ML VIAL IV PRN ×2 (06:17→16:10)
[2020-08-04] MEDS: INSULIN NPH/REGULAR 70/30 100 UNIT/ML SUBCUT SCH ×2 (09:12→16:56)
[2020-08-04] MEDS: PANTOPRAZOLE 40 MG VIAL IV SCH (09:13)
[2020-08-04] MEDS: ENOXAPARIN 40 MG/0.4 ML SYRINGE SUBCUT SCH (09:13)
[2020-08-04] MEDS: DOCUSATE SODIUM 100 MG CAPSULE PO SCH ×2 (09:13→22:05)
[2020-08-04] MEDS: PANTOPRAZOLE 40 MG TABLET PO SCH (09:13)
[2020-08-04] MEDS: LOSARTAN 50 MG TABLET PO SCH ×2 (09:13→22:07)
[2020-08-04] MEDS: METOPROLOL SUCCINATE XL 50 MG TABLET PO SCH ×2 (09:13→22:07)
[2020-08-04] MEDS: ISOSORBIDE MONONITRATE 30 MG TABLET PO SCH (09:13)
[2020-08-04] MEDS: MEMANTINE 10 MG TABLET PO SCH ×2 (09:13→22:05)
[2020-08-04] MEDS: ZINC OXIDE 16% PASTE 57 GM TUBE TOP SCH ×2 (09:14→22:07)
[2020-08-04] MEDS: LEVOFLOXACIN INJ 500 MG in PREMIX 1 EACH IV SCH (09:14)
[2020-08-04] MEDS: DONEPEZIL 10 MG TABLET PO SCH (22:05)
[2020-08-04] MEDS: SERTRALINE 100 MG TABLET PO SCH (22:05)
[2020-08-04] MEDS: QUEtiapine 25 MG TABLET PO SCH (22:05)
[2020-08-04] MEDS: SIMVASTATIN 20 MG TABLET PO SCH (22:06)
[2020-08-04] MEDS: amLODIPine 10 MG TABLET PO SCH (22:06)
[2020-08-05] MEDS: ALBUTEROL/IPRATROPIUM 3 ML NEB RESP TX SCH ×6 (00:08→19:03)
[2020-08-05] MEDS: INSULIN REGULAR 100 UNIT/ML SUBCUT SCH ×4 (02:30→18:26)
[2020-08-05 05:54] LABS: Basophils % 0.4 % (0.0-0.8); Eosinophils # 0.1 10*3/uL (0.0-0.87); Eosinophils % 2.2 % (0.00-10.9); Hemoglobin 9.6 GM/DL (12.0-16.0); Immature Granulocytes % 0.9 %; Immature Granulocytes Absolute 0.05 #; Lymphocytes % 18.1 % (21.3-54.2); Mean Corpuscular HGB Conc 33.1 GM/DL (32-36); Mean Corpuscular Volume 93.5 FL (87-102); Mean Platelet Volume 11.9 FL (9.6-12.0); Monocytes % 13.7 % (1.7-12.7); Neutrophils % 64.7 % (38.7-73.9); Red Cell Distribution Width 13.1 % (9.3-17.3); White Blood Count 5.5 T/CUMM (4-12)
[2020-08-05] MEDS: SODIUM CHLORIDE 0.9% 1,000 ML IV SCH ×2 (06:10→21:31)
[2020-08-05 06:12] LABS: Platelet Count 110 T/CUMM (130-400)
[2020-08-05 06:19] LABS: Hypochromasia 1+; Microcytosis 1+; Platelet Estimate Decreased
[2020-08-05 08:54] LABS: Osmolality,Calculated 285.1 MOS/KG (273-304)
[2020-08-05] MEDS: MEMANTINE 10 MG TABLET PO SCH ×2 (09:39→21:21)
[2020-08-05] MEDS: LOSARTAN 50 MG TABLET PO SCH ×2 (09:39→21:31)
[2020-08-05] MEDS: PANTOPRAZOLE 40 MG TABLET PO SCH (09:39)
[2020-08-05] MEDS: ISOSORBIDE MONONITRATE 30 MG TABLET PO SCH (09:39)
[2020-08-05] MEDS: METOPROLOL SUCCINATE XL 50 MG TABLET PO SCH ×2 (09:39→21:21)
[2020-08-05] MEDS: DOCUSATE SODIUM 100 MG CAPSULE PO SCH ×2 (09:39→21:21)
[2020-08-05] MEDS: INSULIN NPH/REGULAR 70/30 100 UNIT/ML SUBCUT SCH ×2 (09:40→17:00)
[2020-08-05] MEDS: ENOXAPARIN 40 MG/0.4 ML SYRINGE SUBCUT SCH (09:40)
[2020-08-05] MEDS: ZINC OXIDE 16% PASTE 57 GM TUBE TOP SCH ×2 (09:40→21:30)
[2020-08-05] MEDS: LEVOFLOXACIN INJ 500 MG in PREMIX 1 EACH IV SCH (09:41)
[2020-08-05] MEDS: PANTOPRAZOLE 40 MG VIAL IV SCH (09:51)
[2020-08-05] MEDS: VANCOMYCIN INJ 1,250 MG in SODIUM CHLORIDE 0.9% 250 ML IV SCH (11:33)
[2020-08-05] MEDS: SERTRALINE 100 MG TABLET PO SCH (21:21)
[2020-08-05] MEDS: QUEtiapine 25 MG TABLET PO SCH (21:21)
[2020-08-05] MEDS: DONEPEZIL 10 MG TABLET PO SCH (21:21)
[2020-08-05] MEDS: SIMVASTATIN 20 MG TABLET PO SCH (21:21)
[2020-08-05] MEDS: amLODIPine 10 MG TABLET PO SCH (21:30)
[2020-08-06] MEDS: ALBUTEROL/IPRATROPIUM 3 ML NEB RESP TX SCH ×6 (01:20→18:53)
[2020-08-06] MEDS: INSULIN REGULAR 100 UNIT/ML SUBCUT SCH ×5 (01:21→23:10)
[2020-08-06] MEDS: SODIUM CHLORIDE 0.9% 1,000 ML IV SCH (07:01)
[2020-08-06] MEDS: METOPROLOL SUCCINATE XL 50 MG TABLET PO SCH ×2 (09:20→21:44)
[2020-08-06] MEDS: PANTOPRAZOLE 40 MG TABLET PO SCH (09:20)
[2020-08-06] MEDS: MEMANTINE 10 MG TABLET PO SCH ×2 (09:21→21:44)
[2020-08-06] MEDS: DOCUSATE SODIUM 100 MG CAPSULE PO SCH ×2 (09:21→21:44)
[2020-08-06] MEDS: ISOSORBIDE MONONITRATE 30 MG TABLET PO SCH (09:22)
[2020-08-06] MEDS: ZINC OXIDE 16% PASTE 57 GM TUBE TOP SCH ×2 (09:22→23:10)
[2020-08-06] MEDS: LOSARTAN 50 MG TABLET PO SCH ×2 (09:22→21:44)
[2020-08-06] MEDS: INSULIN NPH/REGULAR 70/30 100 UNIT/ML SUBCUT SCH ×2 (09:23→17:23)
[2020-08-06] MEDS: ENOXAPARIN 40 MG/0.4 ML SYRINGE SUBCUT SCH (09:23)
[2020-08-06] MEDS: LEVOFLOXACIN INJ 500 MG in PREMIX 1 EACH IV SCH (09:24)
[2020-08-06] MEDS: PANTOPRAZOLE 40 MG VIAL IV SCH (11:06)
[2020-08-06] MEDS: amLODIPine 10 MG TABLET PO SCH (21:43)
[2020-08-06] MEDS: QUEtiapine 25 MG TABLET PO SCH (21:44)
[2020-08-06] MEDS: DONEPEZIL 10 MG TABLET PO SCH (21:44)
[2020-08-06] MEDS: SERTRALINE 100 MG TABLET PO SCH (21:44)
[2020-08-06] MEDS: SIMVASTATIN 20 MG TABLET PO SCH (21:44)
[2020-08-07] MEDS: ALBUTEROL/IPRATROPIUM 3 ML NEB RESP TX SCH ×4 (00:02→12:37)
[2020-08-07] MEDS: SODIUM CHLORIDE 0.9% 1,000 ML IV SCH ×2 (02:48→13:17)
[2020-08-07] MEDS: INSULIN REGULAR 100 UNIT/ML SUBCUT SCH ×2 (06:57→12:05)
[2020-08-07 07:18] LABS: Basophils % 0.4 % (0.0-0.8); Eosinophils # 0.1 10*3/uL (0.0-0.87); Eosinophils % 1.6 % (0.00-10.9); Hematocrit 29.7 VOL% (35.7-47.0); Hemoglobin 9.9 GM/DL (12.0-16.0); Immature Granulocytes % 0.5 %; Immature Granulocytes Absolute 0.04 #; Lymphocytes % 12.5 % (21.3-54.2); Mean Corpuscular HGB Conc 33.3 GM/DL (32-36); Mean Corpuscular Volume 96.1 FL (87-102); Mean Platelet Volume 10.6 FL (9.6-12.0); Platelet Count 155 T/CUMM (130-400); Red Blood Count 3.09 MC/CUMM (3.8-5.5); Red Cell Distribution Width 13.3 % (9.3-17.3); White Blood Count 7.9 T/CUMM (4-12)
[2020-08-07 08:04] LABS: Calcium 8.4 MG/DL (8.5-10.1); Osmolality,Calculated 287.6 MOS/KG (273-304)
[2020-08-07] MEDS: DOCUSATE SODIUM 100 MG CAPSULE PO SCH (08:39)
[2020-08-07] MEDS: LOSARTAN 50 MG TABLET PO SCH (08:39)
[2020-08-07] MEDS: ENOXAPARIN 40 MG/0.4 ML SYRINGE SUBCUT SCH (08:39)
[2020-08-07] MEDS: ISOSORBIDE MONONITRATE 30 MG TABLET PO SCH (08:40)
[2020-08-07] MEDS: INSULIN NPH/REGULAR 70/30 100 UNIT/ML SUBCUT SCH (08:40)
[2020-08-07] MEDS: PANTOPRAZOLE 40 MG TABLET PO SCH (08:40)
[2020-08-07] MEDS: LEVOFLOXACIN INJ 500 MG in PREMIX 1 EACH IV SCH (08:40)
[2020-08-07] MEDS: METOPROLOL SUCCINATE XL 50 MG TABLET PO SCH (08:40)
[2020-08-07] MEDS: ZINC OXIDE 16% PASTE 57 GM TUBE TOP SCH (08:40)
[2020-08-07] MEDS: MEMANTINE 10 MG TABLET PO SCH (08:41)
[2020-08-07] MEDS: PANTOPRAZOLE 40 MG VIAL IV SCH (08:41)
[2020-08-07] MEDS: VANCOMYCIN INJ 1,250 MG in SODIUM CHLORIDE 0.9% 250 ML IV SCH (12:17)
[2020-08-07 12:35] VITALS: BP 156/68
== END 2020-08-07 15:10 | disposition home health service (06) | DRG 193 ==
LOC: EDBD → EDUNIT# → N.ED 01:36 → N.EDINP 04:53 → N.TELES 17:10
PROVIDERS: ADMIT Internal Medicine; ATTEND Internal Medicine